=== PATIENT | female | born 1960 | race Caucasian/White ===

== ENCOUNTER 2024-07-12 14:56 | Emergency (ER) | payer MEDICAID, SELFPAY ==
[2024-07-12 15:04] VITALS: BP 130/74; PULSE 94; RESP 20; TEMP 36.1; O2SAT 97; BMI 21.9
--- NOTE | 2024-07-12 15:19 | CRLHL7_ITS ---
For Patients: As a result of the 21st Century Cures Act, medical imaging exams and procedure reports are released immediately into your electronic medical record. You may view this report before your referring provider. If you have questions, please contact your health care provider. INDICATION: SWELLING TO THE LEFT SIDE OF THE FACE UP TO THE EAR AND LEFT JAW TECHNIQUE: CT of the neck with 58 ml Isovue 370 iodinated contrast agent. Coronal and sagittal reconstructions are included. COMPARISON: None FINDINGS: There is diffuse inflammation in the left floor of mouth including the left sublingual gland. Additionally, diffuse soft tissue swelling of the left face, left buccal, and left submandibular region. Thickening and enhancement of the left platysma muscle. There is also thickening of the left submental skin and subcutaneous fat. Findings are concerning for cellulitis. No abscess or drainable fluid collection. Periapical lucency along the left mandibular 1st molar roots, without erosion of the overlying alveolar cortex. No lymphadenopathy. The oral cavity, nasopharyngeal, oropharyngeal and hypopharyngeal mucosal spaces are normal. No periapical dental disease. The supraglottic, glottic and infraglottic larynx are normal. The airway including the trachea is normal and is patent. Incidental hyperostosis mandibularis internus. The parotid glands, submandibular and sublingual glands are normal in appearance. The thyroid gland is normal in appearance. The vascular structures opacify normally with contrast material. No suspicious lytic or blastic osseous lesions. Visualized paranasal sinuses and mastoid air cells are clear. Visualized orbital and intracranial contents are normal. Supraclavicular regions, mediastinum and soft tissues of the imaged chest wall are normal. Centrilobular emphysema. A spiculated 1.5 cm opacity at the right lung apex could represent scarring but correlation with prior CT studies is recommended to ensure stability. IMPRESSION: 1. There is diffuse inflammation in the left floor of mouth including the left sublingual gland. Additionally, diffuse soft tissue swelling of the left face, left buccal, and left submandibular region. Thickening and enhancement of the left platysma muscle. There is also thickening of the left submental skin and subcutaneous fat. Findings are concerning for infectious process/cellulitis. No abscess or drainable fluid collection. 2. Periapical lucency along the left mandibular 1st molar roots, without erosion of the overlying alveolar cortex. 3. No cervical lymphadenopathy. 4. Centrilobular emphysematous changes. A spiculated 1.5 cm opacity at the right lung apex could represent scarring but correlation with prior CT studies is recommended to ensure stability. Please note that all CT scans at this facility use dose modulation, iterative reconstruction, and/or weight-based dosing when appropriate to reduce radiation dose to as low as reasonably achievable. Dictated by Clyde Jane MD @ 07/12/2024 4:38:57 PM (Electronically Signed)
[2024-07-12 15:43] LABS: Creatinine, Point-of-Care* 0.6 mg/dl (0.6-1.3)
--- NOTE | 2024-07-12 15:46 | ED_ITS ---
HPI - General Adult General Chief complaint: Ear/Nose/Throat Problem Stated complaint: Sinus infection Time Seen by Provider: 07/12/24 15:01 Source: patient Mode of arrival: ambulatory Limitations: no limitations History of Present Illness HPI narrative: Patient is 63-year-old female presenting to emergency department for left-sided jaw and facial swelling. She 1st noticed the swelling this past Saturday and she has noticed has gotten somewhat worse now. She has pain from her left jaw all way up to her left ear with some minor left maxillary sinus tenderness. Denies having symptoms like this before. She states he has some mild pain with opening her jaw but has been eating and drinking without issues. Has not noticed any shortness of breath. Is not having any throat pain. Denies fevers, chills, weakness, numbness, chest pain. Does have some mild ear pain. States seems to be pain all around a year but worse just anterior to the ear. Related Data Home Medications ?Medication ?Instructions ?Recorded ?Confirmed albuterol 90 mcg/actuation aerosol 2 spray inhalation PRN 04/18/22 04/18/22 inhaler aspirin 81 mg tablet,delayed 81 mg PO DAILY 04/18/22 04/18/22 release citalopram 40 mg tablet 40 mg PO DAILY 04/18/22 04/18/22 gabapentin 300 mg capsule 300 mg PO QDAY 04/18/22 04/18/22 ipratropium 0.5 mg-albuterol 3 mg 3 ml inhalation Q6-8H PRN 04/18/22 04/18/22 (2.5 mg base)/3 mL nebulization soln levothyroxine 112 mcg tablet 112 mcg PO DAILY 04/18/22 07/12/24 metformin 500 mg tablet 500 mg PO QDAY 04/18/22 07/12/24 montelukast 5 mg chewable tablet 10 mg PO QDAY 04/18/22 04/18/22 omeprazole 40 mg capsule,delayed 40 mg PO QDAY 04/18/22 04/18/22 release pravastatin 40 mg tablet 40 mg PO .Bedtime 04/18/22 07/12/24 pregabalin 150 mg capsule 150 mg PO TID 04/18/22 04/18/22 tizanidine 4 mg capsule 4 mg PO BID PRN 04/18/22 04/18/22 Previous Rx's ?Medication ?Instructions ?Recorded clindamycin HCl 150 mg capsule 450 mg (3 x 150 mg) PO TID 10 days 07/12/24 #90 caps Allergies Allergy/AdvReac Type Severity Reaction Status Date / Time Cephalosporins Allergy Mild Verified 07/12/24 16:10 Quinolones Allergy Mild Verified 07/12/24 16:10 sulfamethoxazole Allergy Mild Verified 07/12/24 16:10 trimethoprim Allergy Mild Verified 07/12/24 16:10 Clavulanate Allergy Mild Uncoded 07/12/24 16:10 Sulfa drugs Allergy Mild Uncoded 07/12/24 16:10 Review of Systems Status of ROS: Reports: 10 or more systems reviewed and unremarkable except as noted in History and below [facility] Social History Smoking Status: Current every day smoker What tobacco products do you use: cigarettes How often do you have a drink containing alcohol: never AUDIT-C Alcohol total score: 0 Non-prescribed substance use: denies use Exam Narrative: Exam Narrative: Const: Well-nourished, Well-developed, in mild distress Eyes: PERRL, no conjunctival injection, and symmetrical lids HENT: Atraumatic external nose and ears. Moist mucous membranes. Swelling noted starting to left jaw and left cheek. No tenderness with pulling of the left ear. There is some tenderness to palpation all around the ear but worse anterior to the ear. Normal tympanic membranes bilaterally. Neck: Symmetric, trachea midline, No thyromegaly. CVS: RRR, No murmurs or gallops. Peripheral pulses 2+ and equal in all extremities RESP: Unlabored respiratory effort. Clear to auscultation bilaterally. GI: Nontender/Nondistended, No rebound or guarding. MSK:Extremities w/o deformity, Normal Active ROM Skin: Warm, Dry. No rashes or lesions. Neuro: Normal Muscle tone, No focal neurological deficits. Psych: Awake, Alert, & Oriented x3. Appropriate mood and affect. Const: Vital Signs, click to edit/add: Vital Signs - 24 hr 07/12/24 15:04 Temperature 97 F L Pulse Rate [Right] 94 Respiratory Rate 20 Blood Pressure [Ri ght Upper Arm] 130/74 Pulse Oximetry 97 Oxygen Delivery Me thod Room Air Course Vital Signs Vital signs: Initial Vital Signs Temperature 97 F L 07/12/24 15:04 Temperature Source Temporal Artery Scan 07/12/24 15:04 Pulse Rate 94 07/12/24 15:04 Pulse Rhythm Regular 07/12/24 15:04 Respiratory Rate 20 07/12/24 15:04 Blood Pressure 130/74 07/12/24 15:04 Blood Pressure Mean 92 07/12/24 15:04 Pulse Oximetry 97 07/12/24 15:04 Oxygen Delivery Method Room Air 07/12/24 15:04 Vital Signs Temperature 97 F L 07/12/24 15:04 Pulse Rate 94 07/12/24 15:04 Respiratory Rate 20 07/12/24 15:04 Blood Pressure 130/74 07/12/24 15:04 Pulse Oximetry 97 07/12/24 15:04 Oxygen Delivery Method Room Air 07/12/24 15:04 Temperature 97 F L 07/12/24 15:04 Pulse Rate 94 07/12/24 15:04 Respiratory Rate 20 07/12/24 15:04 Blood Pressure 130/74 07/12/24 15:04 Pulse Oximetry 97 07/12/24 15:04 Oxygen Delivery Method Room Air 07/12/24 15:04 Medical Decision Making [facility] Narrative Medical decision making narrative: Patient is 63-year-old female presenting for some facial swelling. Differential at this time include peritonsillar abscess, Matty angina, retropharyngeal abscess,Lemierre disease or any other concerning oral pharynx or deep neck space abscesses. This could also be a clogged submandibular duct or parotid gland. Will do a CT scan to better evaluate. Will also do CBC and BMP. Lab work returned showing slightly elevated white, 12.87 but otherwise no obvious concerning abnormalities. This is neutrophil predominant. BMP shows a sodium of 130 but this is not related to her symptoms is not something needs to be acutely addressed. CT scan returned showing quite a bit of swelling noted to the left side of her face. There is some inflammation to the floor of left side of her mouth and within the left sublingual gland along with swelling throughout left face nuchal and submandibular region and the platysma muscle no obvious abscess seen. There is also a periapical lucency along the left mandibular 1st molar root. At this time though she is stable and showing no signs of airway compromise and I am comfortable discharging her home on clindamycin. I gave her very strict return precautions on when to return due to all these symptoms could get worse. Lab Data Labs: Lab Results 07/12/24 07/12/24 Range/Units 15:19 15:35 WBC 12.87 H (4.50-11.00) K/uL RBC 4.71 (4.00-5.20) m/uL Hgb 13.5 (12.0-16.0) gm/dL Hct 40.9 (33.0-51.0) % MCV 87 (80-100) fL MCH 29 (26-34) pg MCHC 33 (32-36) gm/dL RDW Coeff of Silas 12.9 (11.5-15.5) % Plt Count 304 (140-440) K/uL Neut % (Auto) 83.3 H (42.0-72.0) % Lymph % (Auto) 7.8 L (20-44) % [place] % (Auto) 7.4 (0.0-11.0) % Eos % (Auto) 0.8 (0.0-7.0) % Baso % (Auto) 0.5 (0.0-3.0) % Neut # (Auto) 10.70 H (1.7-7.0) K/uL Lymph # (Auto) 1.00 (0.90-2.90) K/uL [place] # (Auto) 1.00 H (0.00-0.90) K/UL Eos # (Auto) 0.10 (0.00-0.50) K/uL Baso # (Auto) 0.10 (0.00-0.30) K/uL Abs Immat Gran (auto) 0.00 (0.00-0.30) K/uL Imm/Tot Granulo (auto) 0.2 % Sodium 130 L (135-149) mmol/L Potassium 3.7 (3.6-5.1) mmol/L Chloride 96 (96-114) mmol/L Carbon Dioxide 25 (20-32) mmol/L Anion Gap 9 (7-15) mEq/L BUN < 2 L (7-30) mg/dL Creatinine 0.5 (0.5-1.5) mg/dL Estimated Creat Clear 46.73 Estimated GFR 107 ml/min Glucose 161 H (60-115) mg/dL Calcium 9.7 (8.4-10.6) mg/dL POC Creatinine 0.6 (0.6-1.3) mg/dl Imaging Data Soft tissue neck CT: Attestation: I have reviewed the pertinent imaging results. Radiologist's impression: 1. There is diffuse inflammation in the left floor of mouth including the left sublingual gland. Additionally, diffuse soft tissue swelling of the left face, left buccal, and left submandibular region. Thickening and enhancement of the left platysma muscle. There is also thickening of the left submental skin and subcutaneous fat. Findings are concerning for infectious process/cellulitis. No abscess or drainable fluid collection. 2. Periapical lucency along the left mandibular 1st molar roots, without erosion of the overlying alveolar cortex. 3. No cervical lymphadenopathy. 4. Centrilobular emphysematous changes. A spiculated 1.5 cm opacity at the right lung apex could represent scarring but correlation with prior CT studies is recommended to ensure stability. Please note that all CT scans at this facility use dose modulation, iterative reconstruction, and/or weight-based dosing when appropriate to reduce radiation dose to as low as reasonably achievable. Dictated by Clyde Jane MD @ 07/12/2024 4:38:57 PM Discharge Plan Discharge Clinical Impression: Left facial swelling Patient Disposition: Home, Self-Care Condition: Stable Additional Instructions: Take the clindamycin as directed. It is very important that if you start developing worsening pain with open your jaw, difficulty breathing or any other concerning symptoms that you return to the emergency department immediately for re-evaluation as this could be a sign that infection is getting worse. This is an infection that can cause blockage of your airway if it does worsen. There is also an opacity at the apex of the right long that could just be scarring but you should follow-up with primary care provider for follow-up. Also follow up with primary care provider about this swelling to make sure it is improving. Prescriptions: New clindamycin HCl 150 mg capsule 450 mg PO TID 10 Days Qty: 90 0RF No Action pregabalin 150 mg capsule 150 mg PO TID levothyroxine 112 mcg tablet 112 mcg PO DAILY albuterol 90 mcg/actuation aerosol 2 spray inhalation PRN pravastatin 40 mg tablet 40 mg PO .Bedtime aspirin 81 mg tablet,delayed release (DR/EC) 81 mg PO DAILY citalopram 40 mg tablet 40 mg PO DAILY tizanidine 4 mg capsule 4 mg PO BID PRN montelukast 5 mg tablet,chewable 10 mg PO QDAY ipratropium-albuterol 0.5 mg-3 mg(2.5 mg base)/3 mL solution for nebulization 3 ml inhalation Q6-8H PRN omeprazole 40 mg capsule,delayed release(DR/EC) 40 mg PO QDAY metformin 500 mg tablet 500 mg PO QDAY gabapentin 300 mg capsule 300 mg PO QDAY Follow Up/Referrals: Mere Rivera, DALIA, VISUAL SPECIALIST [Primary Care Provider] - Stand Alone Forms: [facility] Info Instructions
[2024-07-12 15:57] LABS: Basophils Percent Auto 0.5 % (0.0-3.0); Eosinophils Percent Auto 0.8 % (0.0-7.0); Hematocrit 40.9 % (33.0-51.0); Hemoglobin* 13.5 gm/dL (12.0-16.0); Immature Granulocytes Pct Auto 0.2 %; Lymphocytes Percent Auto 7.8 % (20-44); Mean Corpuscular HGB Conc 33 gm/dL (32-36); Mean Corpuscular Hemoglobin 29 pg (26-34); Mean Corpuscular Volume 87 fL (80-100); Monocytes Percent Auto 7.4 % (0.0-11.0); Neutrophils Percent Auto 83.3 % (42.0-72.0); Platelet Count* 304 K/uL (140-440); RDW Coefficient of Variation % 12.9 % (11.5-15.5); Red Blood Count 4.71 m/uL (4.00-5.20); White Blood Count* 12.87 K/uL (4.50-11.00)
[2024-07-12 16:01] LABS: Slide Review Reflex No
[2024-07-12 16:06] LABS: Chloride* 96 mmol/L (96-114); Potassium* 3.7 mmol/L (3.6-5.1); Sodium* 130 mmol/L (135-149)
[2024-07-12 16:09] LABS: Anion Gap 9 mEq/L (7-15); Carbon Dioxide* 25 mmol/L (20-32); Creatinine* 0.5 mg/dL (0.5-1.5); Est. Creatinine Clearance* 46.73; Estimated Glomerular Filt Rate 107 ml/min
[2024-07-12 16:10] LABS: Calcium* 9.7 mg/dL (8.4-10.6); Glucose* 161 mg/dL (60-115)
[2024-07-12 16:11] LABS: Blood Urea Nitrogen* < 2 mg/dL (7-30)
[2024-07-12 17:12] VITALS: BP 147/83; PULSE 90; RESP 20; O2SAT 97
== END 2024-07-12 17:13 | disposition home or self-care (01) ==
PROVIDERS: Emergency Provider Student in an Organized Health Care Education/Training Program; PCP Nurse Practitioner Family
DX: R22.0 Localized swelling, mass and lump, head (principal)
CPT/HCPCS: 36415; 70491; 80048; 82565; 85025; 99283; 99284; 99285; Q9967

== ENCOUNTER 2025-07-05 16:37 | Emergency (ER) | payer OTHER, SELFPAY ==
--- OUTSIDE RECORDS SUMMARY | 2016-06-07 04:00 | XMS_ITS | Continuity of Care Document ---
Author Organization [facility] Address [address] [place] [address] Phone Care Team Providers Care Privacy Officer Name Role Phone Anway Nabor GÓMEZ CNP Unavailable Unavailable Allergies, Adverse Reactions, Alerts Substance Reaction Status Criticality CIPROFLOXACIN HCL Rash Active No Informa tion ciprofloxacin Rash Active No Information amoxicillin HivesHives Active No Information cefuroxime HivesHives Active No Information sulfamethoxazole HivesHives Active No Informat ion Medications Medication Instructions Dosage Effective Dates (start - stop) Status Comments Tirosint 112 mcg capsule take 1 capsule by oral route every day 112 MCG - Active citalopram 40 mg tablet take 1 tablet by oral route every day 40 MG - Active cyclobenzaprine 10 mg tablet take 1 tablet by oral route 3 times every day 10 MG - Active montelukast 10 mg tablet take 1 tablet by oral route every day in the evening 10 MG - Active ProAir RespiClick 90 mcg/actuation breath activated inhale 2 puff by inhalation route every 4 - 6 hours as needed 180 MCG - Active lidocaine 5 % adhesive patch apply 1 patch by transdermal route every day (May wear up to 12hours.) 1 patch - Active Aspir-81 81 mg tablet,delayed release take 1 tablet by oral route every day - Active ipratropium bromide 0.06 % nasal spray spray 2 spray by intranasal route 3 times every day in each nostril 2.00 spray - Active hydroxyzine HCl 25 mg tablet take 1 - 2 Tablet by oral route twice daily as needed - Active omeprazole 40 mg capsule,delayed release take 1 capsule by oral route every day before a meal 40 MG - Active ergocalciferol (vitamin D2) 50,000 unit capsule take 1 capsule by oral route every saturday and , twice a week - Active Lyrica 50 mg capsule take 1 capsule by oral route 4 times every day 50 MG - Active pravastatin 40 mg tablet take 1 tablet by oral route every day 40 MG - Active tramadol 50 mg tablet take 1 Tablet by oral route 2 times every day as needed 50 MG - Active Percocet 5 mg-325 mg tablet take 1 tablet by oral route every 12 hours as needed 1 tablet - No Longer Active oxycodone-acetaminoph en 5 mg-325 mg tablet take 1 Tablet by ORAL route every 12 hours as needed - No Longer Active Procedures Procedure Date New Pt Eval 30 Min Toxicology Point of Care Test 6 Results Test Name Date and Time Measure Units Reference Range Abnormal Flag Status Comments Panel Description: Point Of Care Testing (with T ) Final POCT Amphetamine neg Final POCT-Barbituate neg Final POCT-Benzodiazepi ne neg Final POCT-Cocaine neg Final POCT-Methadone neg Final POCT-Opiates neg Final POCT-Oxycodone pos Final POCT-Marijuana neg Final POCT-Creatinine norm Final POCT-Specific [place] norm Final Recollection? 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 [address], [place], [place], [id number], [place]. tel:[phone] Referring Provider: Jocelyn Bro DO S, [address] [place], [address]. tel:[phone] Family History Family Member Type Diagnosis Age At Onset Father Problem (finding) diabetes melli tus in first degree relative Mother Problem (finding) hypertension Father Problem (finding) Heart Disease Mother Problem (finding) Heart Disease Payers Payer name Insurance type Covered green party ID Angeline partida(s) [facility] [id number] Social History Type Description Quantity Date Captured Comments Alcohol Use Details No Caffeine Use Details Unknown Tobacco Use Status Occasional cigarette smoker Smoking Status Current every day smoker Smoking Tobacco Use Details Cigarette: No Details Available Cigarette: No Details Available Sex Female Vital Signs Date / Time: Height Weight BMI Pulse Rate Blood Pressure Temperature Respiratory Rate Body Surface Area Head Circumference Head Circ. Percentile Wt./Yoel. Percentile BMI percentile Pulse Ox Inhaled Ox 9:42 AM 71 /min 125/75 mm[Hg] 16 /min 95 % Chief Complaint And Reason For Visit No Information Reason For Referral Reason For Referral No Information History Of Present Illness Encounter Date Complaint History Of Prese nt Illness No Information Functional Status Date Functional Assessmen t No Information Instructions Date Instruction Additional Infor mation No Information Assessments Type Assessment Date No Information Patient Care Teams Name Effective Dates (start - stop) Status Members No Information
[2025-07-05 16:47] VITALS: BP 174/87; PULSE 92; RESP 24; TEMP 36.7; O2SAT 96; BMI 20.1
--- NOTE | 2025-07-05 16:59 | ED_ITS ---
HPI - General Adult General Time Seen by Provider: 16:59 Date Seen: 07/05/25 Chief complaint: Cough Stated complaint: sinus infection Time Seen by Provider: 07/05/25 16:52 Source: patient and RN notes reviewed Mode of arrival: ambulatory Limitations: no limitations History of Present Illness HPI narrative: This 64-year-old female is coming in upon referral from clinic. She went in for an appointment. She started with some sinus congestion about 5 days ago, went into her chest and she is feeling short of breath with exertion, coughing. No fevers or chills. She does wonder if maybe she has a sinus infection. She did talk to the provider in clinic whom is not her normal provider that when she is ambulating, is getting short of breath but is also getting chest pressure pain in feels a go up into her neck. She states her brother recently had a heart attack and had similar symptoms. She is a smoker, has an albuterol inhaler but ran out of it. She does not think that she is had pulmonary function testing or breathing testing for about 10 years. She has multiple drug allergies including cephalosporins, quinolones, Bactrim/sulfa. It sounds as if she may be intolerant to Augmentin because of the clavulanate. She thinks she might have a diagnosis of some smoker related lung issues, maybe COPD or emphysema, she is not completely sure. She also notes that she has been having problems with her thyroid, she thought maybe she was having some chest discomfort from that as she maybe had some before. She also notes that she had a UTI and seemed like she was just having. Blood. She notes that she is having vaginal bleeding that happened last week, she has not had a menstrual cycle for 10 years. She is here for her respiratory complaints. Did discuss with patient that vaginal bleeding in the postmenopausal air is abnormal and warrants workup. She is here for her chest symptoms but she will need follow-up for sure regardless given the history I am getting from her. Related Data Home Medications ?Medication ?Instructions ?Recorded ?Confirmed albuterol 90 mcg/actuation aerosol 2 spray inhalation PRN 04/18/22 04/18/22 inhaler aspirin 81 mg tablet,delayed 81 mg PO DAILY 04/18/22 0 07/05/25 release citalopram 40 mg tablet 40 mg PO DAILY 04/18/2206/08 gabapentin 300 mg capsule 300 mg PO QDAY 04/18/2206/08 ipratropium 0.5 mg-albuterol 3 mg 3 ml inhalation Q6-8 H PRN 04/18/22 07/05/25 (2.5 mg base)/3 mL nebulization soln levothyroxine 112 mcg tablet 112 mcg PO DAILY 04/18/22 07/05/25 metformin 500 mg tablet 500 mg PO QDAY 04/18/2206/08 montelukast 5 mg chewable tablet 10 mg PO QDAY 2 04/18/22 omeprazole 40 mg capsule,delayed 40 mg PO QDAY 2 07/05/25 release pravastatin 40 mg tablet 40 mg PO .Bedtime 04/18/22 0 07/05/25 pregabalin 150 mg capsule 150 mg PO TID 04/18/2207/05 tizanidine 4 mg capsule 4 mg PO BID PRN 04/18/22 fenofibrate nanocrystallized 145 145 mg PO DAILY 07/0507/05/25 mg tablet Previous Rx's ?Medication ?Instructions ?Recorded clindamycin HCl 150 mg capsule 450 mg (3 x 150 mg) PO TID 10 days 07/12/24 #90 caps ipratropium 0.5 mg-albuterol 3 mg 3 ml inhalation QID PRN #90 mL 07/05/25 (2.5 mg base)/3 mL nebulization soln nebulizer and compressor #1 ea 07/05/25 Allergies Allergy/AdvReac Type Severity Reaction Status Date / Time Cephalosporins Allergy Mild Verified 07/05/25 16:45 Quinolones Allergy Mild Verified 07/05/25 16:45 sulfamethoxazole Allergy Mild Verified 07/05/25 16:45 trimethoprim Allergy Mild Verified 07/05/25 16:45 Clavulanate Allergy Mild Uncoded 07/12/24 16:10 Sulfa drugs Allergy Mild Uncoded 07/12/24 16:10 Review of Systems Status of ROS: Reports: 6 or more systems reviewed and unremarkable except as noted in History and below [facility] Social History Smoking Status: Current every day smoker What tobacco products do you use: cigarettes Smoking packs per day: 0.5 Smoking cigarettes per day: 10.0 How often do you have a drink containing alcohol: never AUDIT-C Alcohol total score: 0 Non-prescribed substance use: denies use Exam Const: Vital Signs, click to edit/add: Vital Signs - 24 hr 07/05/25 16:47 07/05/25 17:33 07/05/25 19:09 Temperature 98.0 F Pulse Rate [Pulse Oximeter] 92 82 Respiratory Rate 24 20 Blood Pressure [Ri ght Upper Arm] 174/87 H 138/73 Pulse Oximetry 96 99 95 Oxygen Delivery Me thod Room Air Room Air This 64-year-old female is lying in the bed, alert, interactive, no parents stress. She has a little bit more coarse voice, would not say she is hoarse. Able to speak in complete sentences, no tachypnea, no stridor. Sclera clear, conjugate gaze, symmetrical facial function. Neck is supple, no jugular venous distension noted, no adenopathy noted. Lungs with very distant breath sounds, really cannot hear any air flow at all. There is no wheezing or crackles heard baseline. CV regular rate and rhythm, do not hear any significant murmur, normal S1-S2. Abdomen is soft, nontender, nondistended, no organomegaly. She has no lower extremity edema. Documenting provider has reviewed patient's vital signs: yes Course Course ED Course: Will have patient on cardiac monitoring and pulse oximetry, need to obtain an EKG. Need to consider thromboembolic disease, infectious lung etiologies, COPD/emphysema, concomitant cardiac strain or cardiac ischemia itself. Her symptoms are coming with exertion, could be an anginal equivalent or from what I here on her lung exam, she could be having some COPD that is on masking some underlying ischemic disease. There are also other concerns with this patient, potentially postmenopausal bleeding but that is not the emergent issue in the ER. Do need to keep this in consideration. Will obviously think of potential thromboembolic disease. She is comfortable and stable at this time. I would like to see how she does with a DuoNeb but will ask staff to ambulate her with pulse oximetry 1st to see what happens with her pulse and oxygenation. After she is done with that, will see how she responds to a DuoNeb. Will start with a portable chest x-ray but may need further advanced imaging. Reevaluation(s) Time of Reevaluation #1: 18:20 Reevaluation #1: Patient does feel the neb helped some. Her lungs have some improved aeration, can actually hear some mild air exchange, no wheezing or crackles, lung sounds are as significantly distant and there is a significantly prolonged phase on expiration. Reviewed with her that her D-dimer is elevated, we will be doing chest CT PE protocol. With ambulation, her oximetry went to 93%, she was not tachycardic. We are proceeding with chest CT PE protocol to rule out pulmonary emboli. I will have patient receive another DuoNeb as well seeing that hit did help. Time of Reevaluation #2: 20:04 Reevaluation #2: Have reviewed patient's chest CT with her. Unfortunately there is a right apical spiculated lesion in with her sodium being low at 128, do have concerns that this could definitely represent a malignancy. I would not recommend the interval 3 month follow-up that was 1 of the options in the CT. I do think she needs follow-up with her primary care provider and have this lesion further characterized. She feels much better after the 2nd neb, she actually is coughing, has productive sounding cough. She feels much better. With the mucous plugging seen on her chest CT, will give her course of antibiotics. Will also give her prednisone. She really needs to see a lung specialist and have updated pulmonary function testing to see how severe her COPD/emphysema is. We did review that we have been able to rule out an acute heart attack tonight. We did discuss that this workup does not mean that she could not have concomitant underlying heart disease. Hopefully with treating her COPD, this will help her system oxygen ate better and put less stress on her heart. She does understand that she may need more evaluation for the possibility of underlying heart disease but with her current lung symptoms, she really cannot undergo cardiac stress testing. We need to maximize her lung function and diminish the COPD exacerbation, cardiac stress testing could be considered later. She understands that if her breathing or her chest symptoms are worsening at all, she is to return to the ED. Vital Signs Vital signs: Initial Vital Signs Temperature 98.0 F 07/05/25 16:47 Temperature Source Temporal Artery Scan 07/05/25 16:47 Pulse Rate 92 07/05/25 16:47 Respiratory Rate 24 07/05/25 16:47 Blood Pressure 174/87 H 07/05/25 16:47 Blood Pressure Mean 116 H 07/05/25 16:47 Pulse Oximetry 96 07/05/25 16:47 Oxygen Delivery Method Room Air 07/05/25 16:47 Vital Signs Temperature 98.0 F 07/05/25 16:47 Pulse Rate 92 07/05/25 16:47 Respiratory Rate 24 07/05/25 16:47 Blood Pressure 174/87 H 07/05/25 16:47 Pulse Oximetry 96 07/05/25 16:47 Oxygen Delivery Method Room Air 07/05/25 16:47 Temperature 98.0 F 07/05/25 16:47 Pulse Rate 82 07/05/25 19:09 Respiratory Rate 20 07/05/25 19:09 Blood Pressure 138/73 07/05/25 19:09 Pulse Oximetry 95 07/05/25 19:09 Oxygen Delivery Method Room Air 07/05/25 19:09 Medications Administered Medications: Discontinued Medications Generic Name Dose Route Start Last Admin Trade Name Ayana PRN Reason Stop Dose Admin Albuterol/Ipratropium 1 [facility] 07/05/25 17:08 07/05/25 17:22 Iprat-Albut 0.5-2.5 Mg/3 Ml [facility] 07/05/25 17:09 1 neb ONCE ONE Administration Albuterol/Ipratropium 1 [facility] 07/05/25 18:29 07/05/25 18:45 Iprat-Albut 0.5-2.5 Mg/3 Ml [facility] 07/05/25 18:30 1 [facility] ONCE ONE Administration Medical Decision Making Lab Data Lab results reviewed: Yes I reviewed the patient's lab results Labs: Lab Results 07/05/25 Range/Units 17:27 WBC 8.60 (4.50-11.00) K/uL RBC 4.50 (4.00-5.20) m/uL Hgb 13.1 (12.0-16.0) gm/dL Hct 38.8 (33.0-51.0) % MCV 86 (80-100) fL MCH 29 (26-34) pg MCHC 34 (32-36) gm/dL RDW Coeff of Silas 12.8 (11.5-15.5) % Plt Count 335 (140-440) K/uL Neut % (Auto) 73.2 H (42.0-72.0) % Lymph % (Auto) 12.6 L (20-44) % [place] % (Auto) 9.8 (0.0-11.0) % Eos % (Auto) 3.5 (0.0-7.0) % Baso % (Auto) 0.8 (0.0-3.0) % Neut # (Auto) 6.30 (1.7-7.0) K/uL Lymph # (Auto) 1.10 (0.90-2.90) K/uL [place] # (Auto) 0.80 (0.00-0.90) K/UL Eos # (Auto) 0.30 (0.00-0.50) K/uL Baso # (Auto) 0.07 (0.00-0.30) K/uL Abs Immat Gran (auto) 0.01 (0.00-0.30) K/uL Imm/Tot Granulo (auto) 0.1 % INR 0.99 (0.91-1.10) APTT 29 (23-33) Seconds D-Dimer Quant (PE/DVT) 1.28 H (0.00-0.50) ug/ml VBG pH 7.390 (7.32-7.43) VBG pCO2 48 (40-50) mmHG VBG pO2 34.4 (25-47) mmHG VBG HCO3 29 H (21-28) mmol/L Sodium 128 L (135-149) mmol/L Potassium 3.6 (3.6-5.1) mmol/L Chloride 92 L (96-114) mmol/L Carbon Dioxide 29 (20-32) mmol/L Anion Gap 7 (7-15) mEq/L BUN 3 L (7-30) mg/dL Creatinine 0.5 (0.5-1.5) mg/dL Estimated Creat Clear 45.95 Estimated GFR 106 ml/min Glucose 135 H (60-115) mg/dL Lactate 0.9 (0.5-1.9) mmol/L Calcium 9.4 (8.4-10.6) mg/dL Total Bilirubin 0.4 (0.1-1.5) mg/dL AST 29 (12-35) U/L ALT 17 (4-35) U/L Alkaline Phosphatase 76 (40-150) U/L Troponin I < 0.01 (0.01-0.04) ng/mL C-Reactive Protein 2.5 H (0.5-1.0) mg/dL NT-Pro-B Natriuret Pep 80 (See Note) pg/mL Total Protein 7.0 (6.0-8.3) g/dL Albumin 4.4 (3.3-5.0) g/dL SARS-CoV-2 (PCR) Negative SARS-CoV-2 (Negative) Influenza Type A (PCR) Negative PCR FLU A (Negative) Influenza Type B (PCR) Negative PCR FLU B (Negative) RSV (PCR) Negative PCR RSV (Negative) Imaging Data Chest x-ray: Attestation: I have reviewed the pertinent imaging results. My impression: Did visualize her chest x-ray, appears to have hyperinflation but no noted pneumonia or consolidation, wait radiology over read. Radiologist's impression: Patient: ZARA FRANCIS Facility:?[facility] Patient ID:?[id number] Site Patient ID:?[id number]. Site :?[id number] Study:?XRay-Chest PORTABLE-07/05/2025 5:41:06 PM Ordering Physician:Jordan Marrero Final Report: INDICATION: Shortness of breath, cough. TECHNIQUE: Chest 1 views. COMPARISON: Chest CT 2019. FINDINGS: Lungs: Normal lung volume. No consolidation. The tracheobronchial tree and hilar structures are unremarkable. Pleura: No pleural effusion or pneumothorax. Heart and Mediastinum: Normal heart size. The great vessels of the thorax are unremarkable. Bones: No acute displaced osseous process. IMPRESSION: No consolidation. Dictated by Clyde Lundberg MD @ 07/05/2025 6:12:50 PM (Electronic Signature) CT scan - chest: Attestation: I have reviewed the pertinent imaging results. Radiologist's impression: Patient: ZARA FRANCIS Facility:?[facility] Patient ID:?[id number] Site Patient ID:?[id number]. Site :?[id number] Study:?CT-Chest Angio W/95CC [id number]/29/2025 6:45:11 PM Ordering Physician:Jordan Marrero Final Report: INDICATION: Dyspnea on exertion. Elevated D-dimer. COMPARISON: 02/05/2019 CT of the chest TECHNIQUE: CT pulmonary angiogram of the chest with intravenous contrast (95 milliliters Isovue 370). Reconstructed images/MIPS were created. FINDINGS: Airways: The trachea and central airways are clear. There is mild diffuse bronchial wall thickening. There is multifocal distal airway mucous plugging. Lungs: Emphysematous change in the lungs. Spiculated solid right upper lobe apical pulmonary nodule measuring 13 x 10 millimeters which is new since 02/05/2019 (). There are several sub 5 millimeter solid pulmonary nodules which are unchanged since 02/05/2019 such as a solid micronodule in the left upper lobe on series 6, image 46. There is a punctate calcified granuloma in the left lower lobe. Pleura: No effusion. Lymph nodes: No bulky thoracic lymphadenopathy. Heart: Normal size. There is coronary artery calcification. Aorta: Moderate calcification. Pulmonary artery: Normal caliber of the main pulmonary artery. No pulmonary embolism is detected. Chest wall: Normal. Bones: Diffuse osseous demineralization. Similar chronic mild multilevel anterior vertebral body wedging most conspicuous in the inferior thoracic spine. There are osseous degenerative changes. IMPRESSION: 1. No pulmonary embolism is detected. 2. Emphysematous lungs with multifocal distal airway mucous plugging. 3. Spiculated solid right upper lobe apical pulmonary nodule measuring 13 x 10 millimeters which is new since 02/05/2019. For a incidental nodule of this size, initial management considerations include PET-CT, biopsy, or follow-up low-dose noncontrast CT in 3 months. Please note that all CT scans at this facility use dose modulation, iterative reconstruction, and/or weight-based dosing when appropriate to reduce radiation dose to as low as reasonably achievable. Dictated by Andrey Francis MD @ 07/05/2025 7:41:48 PM (Electronic Signature) ECG Data Attestation: I personally reviewed and interpreted this ECG as follows: (Normal sinus rhythm, 77 beats per minute. Some artifact noted. Q-waves V1 V2 but significant artifact. Possible mild ST segment depression with some flipped T- waves but again artifact noted.) Prior ECG tracings: not available for review Discharge Plan Discharge Clinical Impression: Acute exacerbation of chronic obstructive pulmonary disease, Mass of right lung, Hyponatremia Patient Disposition: Home, Self-Care Condition: Stable Instructions: Hyponatremia (ED), COPD (Chronic Obstructive Pulmonary Disease) (ED) Additional Instructions: You need to follow up in clinic this week, they will need to get you a referral to pulmonology and possibly order further testing for your lungs. I highly recommend that this lung lesion gets worked up now, your sodium was mildly low at 128. This should be rechecked in clinic to make sure it is not worsening. Start the prednisone 20 mg twice a day for 5 days, doxycycline 100 mg twice a day for 7 days. I have sent in a prescription for nebulizer and DuoNebs to be used up to 4 times a day. I have given you a refill of your albuterol inhaler out of [employer], this can be used 2 puffs every 4 hours as needed and can be used in between the DuoNebs. You may need further cardiac stress testing but this should not be done when your pulmonary/lung status is decompensated like it is now. If you have worsening symptoms, develops further concerns, chest pain reoccurs, please return to the ER for further evaluation. Activity Level: Activity as Tolerated Prescriptions: New ipratropium-albuterol 0.5 mg-3 mg(2.5 mg base)/3 mL solution for nebulization 3 ml inhalation QID PRNQty: 90 0RF (DME) nebulizer and compressor Device See Rx Instructions .Route Qty: 1 0RF Rx Instructions: As directed No Action pregabalin 150 mg capsule 150 mg PO TID levothyroxine 112 mcg tablet 112 mcg PO DAILY albuterol 90 mcg/actuation aerosol 2 spray inhalation PRN pravastatin 40 mg tablet 40 mg PO .Bedtime aspirin 81 mg tablet,delayed release (DR/EC) 81 mg PO DAILY citalopram 40 mg tablet 40 mg PO DAILY tizanidine 4 mg capsule 4 mg PO BID PRN montelukast 5 mg tablet,chewable 10 mg PO QDAY ipratropium-albuterol 0.5 mg-3 mg(2.5 mg base)/3 mL solution for nebulization 3 ml inhalation Q6-8H PRN omeprazole 40 mg capsule,delayed release(DR/EC) 40 mg PO QDAY metformin 500 mg tablet 500 mg PO QDAY gabapentin 300 mg capsule 300 mg PO QDAY fenofibrate nanocrystallized 145 mg tablet 145 mg PO DAILY clindamycin HCl 150 mg capsule 450 mg PO TID 10 Days Qty: 90 0RF Follow Up/Referrals: Mere Rivera, DALIA, TRANSMISSION REPAIRER [Primary Care Provider, Family Practice] [facility] Info Instructions Procedures ABG Interpretation ABG Results: 07/05/25 17:27 VBG pH 7.390 VBG pCO2 48 VBG pO2 34.4 VBG HCO3 29 H
--- NOTE | 2025-07-05 17:08 | CRLHL7_ITS ---
For Patients: As a result of the Century Cures Act, medical imaging exams and procedure reports are released immediately into your electronic medical record. You may view this report before your referring provider. If you have questions, please contact your health care provider. INDICATION: Shortness of breath, cough. TECHNIQUE: Chest 1 views. COMPARISON: Chest CT 2018. FINDINGS: Lungs: Normal lung volume. No consolidation. The tracheobronchial tree and hilar structures are unremarkable. Pleura: No pleural effusion or pneumothorax. Heart and Mediastinum: Normal heart size. The great vessels of the thorax are unremarkable. Bones: No acute displaced osseous process. IMPRESSION: No consolidation. Dictated by Clyde Lundberg MD @ 07/05/2025 6:12:50 PM (Electronically Signed)
--- OUTSIDE RECORDS SUMMARY | 2025-07-05 17:17 | XMS_ITS | Clinical Summary ---
Author Organization [employer] [facility] Address [address] [place] [address] Care Team Providers Care Environmental Consultant Name Role Phone Walter Rowe MD Unavailable [phone] Mere Rivera NP Primary Care Provider [phone] Allergies Active Allergy Reactions Criticality Noted Date Comments Amoxicillin-Pot Clavulanate Vomiting 04/01/20 06 Cefuroxime *Unknown - Follow up needed 11/18/2005 Ciprofloxacin Rash 11/27/2006 Quinolones Rash Low 02/05/2019 Sulfamethoxazole-Trimethoprim *Unknown - Follow up needed 11/18/2005 Trimethoprim *Unknown Low 02/05/2019 Medications aspirin enteric coated 81 mg tabletIndications:Di abetes mellitus type II Take 1 tablet by mouth once daily with a meal. 90 tablet 3 11/02/19 13 Active cetirizine (ZYRTEC) 10 mg tablet Take 1 tablet by mouth once daily. 0 07/24/20 19 Active lancets (Accu-Chek Softclix Lancets)Indications: Type 2 diabetes mellitus with microalbuminuria, without long-term current use of insulin (HC) TEST 1 TIME DAILY 100 Each 3 03/24/20 21 Active cholecalciferol, Vitamin D3, (Vitamin D-3) 5,000 unit tab tabletIndications:Vi tamin D deficiency Take 1 Tablet (5,000 units) by mouth once daily. 90 Tablet 1 12/15/19 22 Active blood-glucose meterIndications:Typ e 2 diabetes mellitus with microalbuminuria, without long-term current use of insulin (HC) As directed. Dispense meter, test strips, lancets covered by pt ins. E11.9 NIDDM type II - Test 1 time/day 1 Each 11/20/19 23 Active blood sugar diagnostic (Accu-Chek Guide test strips) stripIndications:Typ e 2 diabetes mellitus with microalbuminuria, without long-term current use of insulin (HC) TEST 1 TIME DAILY 100 Each 3 08/23/20 23 Active fluticasone (50 mcg per actuation) nasal solution (FLONASE)Indications :Environmental allergies,Dysfunctio n of right eustachian tube Inhale 1 [place] to both nostrils two times daily. 48 mL 11 02/07/20 24 Active montelukast (SINGULAIR) 10 mg tabletIndications:En vironmental allergies Take 1 Tablet (10 mg) by mouth at bedtime. 90 Tablet 3 02/07/20 24 Active fenofibrate nanocrystallized (TRICOR) 145 mg tabletIndications:Mi xed hyperlipidemia Take 1 Tablet (145 mg) by mouth once daily with a meal. 90 Tablet 3 09/01/20 24 Active gabapentin (NEURONTIN) 100 mg capsuleIndications:C hronic bilateral low back pain without sciatica Take 1 Capsule (100 mg) by mouth 3 times daily if needed (Low back pain). 100 Capsule 3 09/01/20 24 Active metFORMIN (GLUCOPHAGE XR) 500 mg Extended-Release tabletIndications:Ty pe 2 diabetes mellitus with microalbuminuria, without long-term current use of insulin (HC) Take 1 Tablet (500 mg) by mouth once daily with evening meal. 90 Tablet 3 09/01/20 24 Active omeprazole (PRILOSEC) 40 mg Delayed-Release capsuleIndications:G astric reflux Take 1 Capsule (40 mg) by mouth once daily before a meal. 90 Capsule 1 09/01/20 24 Active pravastatin (PRAVACHOL) 40 mg tabletIndications:Mi xed hyperlipidemia Take 1 Tablet (40 mg) by mouth at bedtime. 90 Tablet 3 09/01/20 24 Active citalopram (CELEXA) 20 mg tabletIndications:De pression, major, single episode, moderate (HC) Take 1 Tablet (20 mg) by mouth once daily in the morning. 90 Tablet 3 11/24/19 25 Active cyclobenzaprine (FLEXERIL) 10 mg tabletIndications:Mu scle spasm Take 1 Tablet (10 mg) by mouth 3 times daily if needed for Muscle Spasm. 90 Tablet 3 12/04/19 25 Active levothyroxine (SYNTHROID) 100 mcg tabletIndications:Ac quired hypothyroidism Take 1 Tablet (100 mcg) by mouth before breakfast. Dose increase 04/19/25 90 Tablet 04/19/20 25 Active meloxicam 15 mg tabletIndications:Ac brenna pain of left knee Take 1 Tablet (15 mg) by mouth once daily. 30 Tablet 06/01/20 25 Active albuterol HFA (Ventolin HFA) 90 mcg/actuation inhalerIndications:C OPD, mild (HC) INHALE 1 TO 2 PUFFS BY MOUTH EVERY 4 HOURS NEEDED FOR SHORTNESS OF BREATH OR FOR WHEEZE 54 Each 3 07/01/20 25 Active albuterol HFA (Ventolin HFA) 90 mcg/actuation inhalerIndications:C OPD, mild (HC) INHALE 1 TO 2 PUFFS BY MOUTH EVERY 4 HOURS NEEDED FOR SHORTNESS OF BREATH OR FOR WHEEZE 54 Each 3 12/25/19 25 025 Discontinu ed(Reorder (E-cancel not sent)) nitrofurantoin macrocrystals/monohy drate (MACROBID) 100 mg capsuleIndications:U TI (urinary tract infection), uncomplicated Take 1 Capsule (100 mg) by mouth two times daily for 5 days. 10 Capsule 06/08/20 25 025 clindamycin (CLEOCIN) 300 mg capsuleIndications:u rinary tract infection Take 2 Capsules (600 mg) by mouth three times daily for 7 days. 42 Capsule 06/11/20 25 025 Active Problems Problem Noted Date Diagnosed Date Hyperopia of both eyes with astigmatism and pres byopia 12/20/2021 Nuclear senile cataract of both eyes 12/20/2021 Moderate episode of recurrent major depressive d isorder 09/07/2020 Hip pain, right 04/27/2017 Overview (08/31/2017): Labral tear seen on MR Arthrogram January: right hip intraarticular joint injection under ultrasound guidance. Aug 2017: Saw Dr. Godinez, see note, recommended more physical therapy before considering any surgical options for hip pain, likely multifactorial. Pain management contract terminated 12/17/2016 Overview (12/17/2016): 2 consecutive months of patient self-escalation. Not functioning well with current regimen. Diagnosis: Chronic lumbar degenerative changes/spinal stenosis. Recommend follow up with Orthopedics, physical therapy. Pecocet 5/325 twice daily and Lyrica 100mg twice daily previously COPD, mild 09/05/2016 Overview (09/05/2016): Asymptomatic. No shortness of breath or daily cough. Albuterol and ipratropium. Type 2 diabetes mellitus wit h microalbuminuria, without long-term current use of insulin 06/25/2016 Chronic low back pain 01/10/2016 Overview (03/06/2017): 07/23/16: Bilateral Lumbar Spine lateral trigger point steroid injection. 08/06/16: 30% improvement on left and 0% on right February 2017: Saw. Rheumatology ( Dr. Arriola) changing ibuprofen to nabumetone, No underlying Rheumatologic etiology. February 2017: Saw Dr. Smith, [facility], recommended Fibromyalgia program at [facility] and Rheumatology consult. Lyrica increased. 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 ANXIETY 05/18/2005 DEPRESSIVE DISORDER, MAJOR RECUR, UNSPECIFIED TOBACCO USE 01/06/2003 HX, FAMILY, ISCHEMIC HEART DISEASE 02/09/2002 Resolved Problems Problem Noted Date Diagnosed Date Resolved Date Pain medication agreement 04/16/2016 Overview (06/30/2016): 04/16/16. Chronic lumbar degenerative changes/spinal stenosis. Recommend follow up with Orthopedics. Pecocet 5/325 twice daily as needed pain, #60/month [facility]. Lyrica 100mg twice daily. Adding glucosamine. Acupuncture as needed, can add OMT and pool physical therapy. Dr. Bro Patient established with [facility] - recommended epidural injection. D/c Tramadol Midline low back pain 12/05/20152015 Diabetes mellitus, type 2 11/02/2012 Controlled substance agreeme nt signed and scanned 04/20/11 10/21/2012 04/16/2016 Overview (04/13/2014): Percocet 60 tab a month, DR Umana, and [facility] clinic. 02/2013 reviewed 04/13/14 - increased tramadol to 200 mgXR daily and percocet only as needed flare up pain, 40 tablets a month. Celebrex daily. Adjusting medications. Chronic back pain 01/25/2012 01/10/2016 Pain medication agreement 04/18/2011 Overview (08/21/2012): oxycodone refill needs to be sent to pain clinic per LIVIER UMANA MD (see refill encounter dated 08/20/12) ... MARICARMEN DAVIS RN, 08/21/2012 10:54 PM Controlled substance agreement for percocet 30 tab a month on file and signed 04/18/11. Designated pharmacy: [facility], Prescribing physician: Mariusz Diagnosis: back pain Depressive disorder, not elsewhere classified 12/27/19 06 01/30/2013 BRONCHITIS - ACUTE 05/18/2005 3 SINUSITIS - ACUTE 04/11/2005 01/30/2013 MALAISE AND FATIGUE NEC 02/09/200201/06 Wheezing 10/28/2000 01/30/2013 Encounters Date Type Department Care Team Description 07/05/2025 4:00 PM CDT Office [place] [facility] [address] [place] [address] Shruthi Delaney MD Sinus Problem (Sinus pain and pressure, cough, shortness of breath x 5 days ) 07/05/2025 Travel 07/01/[address] [address] Mere Rivera, STATION MECHANIC HELPER Refill Request (Albuterol inhaler) 06/29/2025 [address]ill [address] [place] [address] Mere Rivera, STATION MECHANIC HELPER Refill Request (Meloxicam) 06/22/2025 11:05 AM CDT Ancillary Procedure [address] [address] 06/22/2025 11:00 AM CDT Ancillary Procedure [address] [address] 06/22/2025 10:30 AM CDT Office Visit [address] [address] Isauro King DO Knee Pain/problem (Left knee) 06/22/2025 Travel 06/10/2025 10:20 AM CDT Office Visit [facility] [address] [place] [address] James Harry MD Knee Pain/problem (Pain of left knee) 06/09/2025 Travel 06/08/2025 2:20 PM CDT Office [address] [place] [address] Shruthi Delaney MD Urinary Problem (Frequent urination, low back pain, abdominal pressure, blood in urine x 5 days ) 06/08/2025 Travel 06/01/2025 3:30 PM CDT Ancillary Procedure [address] [place] [address] [place] [address] 06/01/2025 3:00 PM CDT [place] [facility] [address] [place] [address] Mere Rivera NP Musculoskeletal Problem 06/01/2025 Travel 04/05/2025 2:00 PM CDT Orders Only [facility] [address] [place] [address] Lab, [facility] 04/05/2025 Travel from Last 3 Months Immunizations Immunization Administration Dates Next Due HepA-HepB (Twinrix) 04/11/2015,05/24/2014,2013 Hepatitis B, Unspecified 04/19/2014 Influenza, IIV3 (Age >=3 years) 07/27/2012,08/09 Influenza, IIV4 07/10/2017, 6,06/24/2015,2013 Influenza, IIV4 (=>6mos) MDV 07/24/2019,07/19/20 17 Pneumococcal Poly,23-Valent (Pneumovax) 11/20/2018 Td (Age >=7 Years) 08/09/2005,05/30/1995 Tdap 01/20/2013,08/22/2012 Zoster (Shingrix-RZV, recombinant) 11/16/2019, Family History Medical History Relation Name Comments Other Brother 4 Bipolar, HTN Asthma Child Diabetes Father Hypertension Father Other Father OA Hyperlipidemia Mother Hypertension Mother IA at 52 yo Other Paternal Grandmother GParent s, cad, ca uncertain type-?stomach, CVA Cancer-breast No Family History Relation Name Status Comments Brother 1 Alive Brother 2 Alive Brother 3 Alive Brother 4 Child Father Alive Mother Alive Paternal Grandmother Social History Tobacco Use Types Packs/Day Years Used Date Smoking Tobacco: Every Day Cigarettes 0.5 41.7 Started: 1983 Passive Smoke Exposure: Current Smokeless Tobacco: Never Tobacco Cessation:Ready to Q uit: Yes; Counseling Given: Not Answered Comments:Has patches at home, working on it Alcohol Use Standard Drinks/Week Comments No 0 (1 standard drink = 0.6 oz pur e alcohol) PHQ-2 Answer Date Recorded PHQ-2 TOTAL SCORE 2 12/24/2024 Social Connections Answer Date Recorded Do you often feel lonely or isolated from those around you? 0 11/09/2024 Financial Resource Strain Answer Date R ecorded Difficulty of Paying Living Expenses 3 11/09/2024 Difficulty of Paying Living Expenses Not on file 11/09/2024 Food Insecurity Answer Date Recorded Do you worry your food will run out before you are able to buy more? 1 11/09/2024 Transportation Needs Answer Date Record ed Does lack of transportation keep you from medica l appointments? 1 11/09/2024 Does lack of transportation keep you from work, meetings or getting things that you need? 1 11/09/2024 Housing Stability Answer Date Recorded What is your housing situation today? 1 11/09/2024 Utilities Answer Date Recorded Do you have trouble paying f or utilities (for example, heat, electricity, water, phone)? 1 11/09/2024 Comments No Sex and Gender Information Value Date Recorded Sex Assigned at Female 03/27/2020 2:31 PM CDT Legal Sex Female 5:24 AM MARBLE INSTALLATION HELPER Gender Identity Female 01/18/2022 2:49 PM CDT Sexual Orientation Not on file Obstetrics History Para Term AB IAB SAB Ectopic Multiple Livin g Live Births 3 3 2 1 0 0 0 0 0 3 3 Date Outcome GA Total Labor Labor/2nd/3rd Weight Sex Type Anes PTL Renu A1 A5 Name Clin Term Vag Living Term Vag Living Vag Living Last Filed Vital Signs Vital Sign Reading Time Taken Comments Blood Pressure 138/82 07/05/2025 4:01 PM CDT Pulse 87 07/05/2025 4:01 PM CDT Temperature 36.5 C (97.7 F) 11/09/2024 11:35 AM MARBLE INSTALLATION HELPER Respiratory Rate 15 08/08/2022 11:5 1 AM CDT Oxygen Saturation 98% 07/05/2025 4:01 PM CDT Inhaled Oxygen Concentration - - Weight 49.8 kg (109 lb 12.8 oz) 07/05/2025 4:01 PM CDT Height 157.5 cm (5' 2) 12/04/2024 10:0 8 AM MARBLE INSTALLATION HELPER Body Mass Index 20.08 12/04/2024 10:08 AM MARBLE INSTALLATION HELPER Plan of Treatment Upcoming Encounters Date Type Department Care Team (Late st Contact Info) Description 07/06/2025 11:15 AM CDT [place] [facility] [address] [place] [address] [place] [address] [address] [place], [place] [id number] Health Maintenance Due Date Last Done Comments HIV for age 15-65 [address] (for lung CA) ag e 50-80 2012 Pneumococcal series for age 50+ (2 of 2 - PCV) 11/20/2019 11/20/2018 Mammogram for age 45-75 11/23/2020 11/23/19 20, 06/12/2016, 03/24/2015, Additional history exists RSV vaccine for adults or (1 - Risk 60-74 years 1-dose series) 2022 Tetanus booster 01/20/2023 01/20/2013, 08/07, 08/09/2005, Additional history exists Pap test for age 21-65 11/16/2024 , 11/16/2019, 12/05/2015, Additional history exists COVID-19 vaccine series (2024- season) 2025 01/27/2021, 01/07/2021 Influenza Vaccine (#1) 2025 9, 07/19/2017, 07/10/2017, Additional history exists BMI (ht and wt on same day) for age 18+ 12/04/2025 12/04/2024, 11/09/2024, 02/07/2024, Additional history exists Depression screening for age 12+ 12/24/2025 12/24/2024, 12/24/2024, 11/24/2024, Additional history exists Fecal testing sDNA-FIT ([place] guard) for age 45-75 10/08/2027 10/08/2024 Lipids for age 45-75 02/06/2029 02/07/2024, 11/20/2022, 04/19/2021, Additional history exists Hepatitis C screening for ag e 18-79 Completed 02/18/2006 Hepatitis B series for 19+ Completed 04/11, 05/24/2014, 04/19/2014, Additional history exists Zoster (shingles) series for age 50+ Completed 11/16/2019, 07/24/2019 Medical Devices Implanted Type Area Transcriptionist Device Identifier Shelf Expiration Date Model / Serial / Lot Tvt Obturator System - [id number] Implanted:Qty: 1 on 03/20/2013 by Andria Alatorre MD at [facility] N/A: Urethra 06/20/2013 [id number] / NA / [id number] Procedures Procedure Name Priority Date/Time Associated Diagnosis Comments XR LEG LENGTH Routine 06/22/2025 11:03 AM CDT Chronic pain of left knee XR KNEE 1 VIEW BILATERAL Routine 06/22/2025 11:02 AM CDT Chronic pain of left knee URINALYSIS MICROSCOPIC Routine 06/08/2025 2:38 PM CDT UTI (urinary tract infection), uncomplicated URINE CULTURE Routine 06/08/2025 2:38 PM CDT UTI (urinary tract infection), uncomplicated URINALYSIS MACROSCOPIC - [facility] ONLY POC DIP (QUEST) Routine 06/08/2025 2:38 PM CDT UTI (urinary tract infection), uncomplicated XR KNEE 3 VIEWS LEFT Routine 06/01/2025 3:37 PM CDT Acute pain of left knee TSH Routine 04/05/2025 1:59 PM CDT Acquired hypothyroidism SDNA-FIT EXTERNAL (COLOGUARD) Routine 10/08/2024 9:04 AM MARBLE INSTALLATION HELPER Screening for colorectal cancer LIPID PANEL W REFLEX MEASURED LDL Routine 02/07/2024 3:29 PM CDT Type 2 diabetes mellitus with microalbuminuria, without long-term current use of insulin (HC) Mixed hyperlipidemia XR MAMMO BILAT SCREENING Routine 11/23/2019 10:15 AM MARBLE INSTALLATION HELPER 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 THIN PREP PAP SCREEN IMAGED Routine 11/16/2019 11:10 AM MARBLE INSTALLATION HELPER Cervical cancer screening ANTI HCV Routine 02/18/2006 11:13 AM CDT Abnorm Results Of Other Specif [facility] Study from Last 3 Months or Most Recently Relevant to Health Maintenance Results * XR LEG LENGTH (06/22/2025 11:03 AM CDT) Anatomical Region Laterality Modality LEGS, FEMURS Digital Radiogra phy 06/23/2025 11:4 0 AM CDT Narrative 06/23/2025 11:40 AM CDT For Patients: As a result of the Cures Act, medical imaging exams and procedure reports are released immediately into your electronic medical record. You may view this report before your referring provider. If you have questions, please contact your health care provider. INDICATION: Chronic left knee pain. TECHNIQUE: Single standing view of both knees. FINDINGS: Both hip joints appear normal. There is a right TKA. Medial and lateral compartment osteoarthritis in the left knee. Mild joint space narrowing in both ankles. Right leg may measures 80.2 cm from the ankle to the femoral head. Left leg measures 79.3 cm from the ankle joint to the femoral head. Dictated by Corwin York MD @ 06/23/2025 11:40:23 AM (Electronically Signed) Procedure Note Corwin York MD - 06/23/2025 For Patients: As a result of the Cures Act, medical imagingexams and procedure reports are released immediately into your electronicmedical record. You may view this report before your referring provider.If you have questions, please contact your health care provider. INDICATION: Chronic left knee pain. TECHNIQUE: Single standing view of both knees. FINDINGS: Both hip joints appear normal. There is a right TKA. Medial and lateral compartment osteoarthritis in theleft knee. Mild joint space narrowing in both ankles. Right leg may measures 80.2 cm from the ankle to the femoral head. Left leg measures 79.3 cm from the ankle joint to the femoral head. Dictated by Corwin York MD @ 06/23/2025 11:40:23 AM (Electronically Signed) us Isauro King DO GENERAL IMAGING Final Resu lt * XR KNEE 1 VIEW BILATERAL (06/22/2025 11:02 AM CDT) Anatomical Region Laterality Modality KNEES, KNEE L, KNEE R Digital Ra diography 06/23/2025 8:31 AM CDT Impressions 06/23/2025 8:31 AM CDT 1. No acute osseous injuries or abnormalities are noted. Dictated by Rober Dempsey MD @ 06/23/2025 8:31:06 AM Dictated by: Rober Dempsey MD @ 06/23/2025 08:31:12 (Electronically Signed) Narrative 06/23/2025 8:31 AM CDT For Patients: As a result of the Cures Act, medical imaging exams and procedure reports are released immediately into your electronic medical record. You may view this report before your referring provider. If you have questions, please contact your health care provider. INDICATION: Chronic pain of left knee TECHNIQUE: Knee radiograph 1 view bilateral COMPARISON: 06/01/2025 FINDINGS: Bone: No acute fractures or aggressive bone lesions are identified. Moderate diffuse osteopenia is present. Joint: A right total knee arthroplasty is present. Severe joint space narrowing is present in the medial compartment of the left knee without significant interval change. The patellofemoral compartment and the presence of a knee effusion cannot be assessed on the frontal view. Soft tissue: Unremarkable. No radiopaque foreign bodies are seen. Procedure Note Rober Dempsey MD - 06/23/2025 For Patients: As a result of the Cures Act, medical imagingexams and procedure reports are released immediately into your electronicmedical record. You may view this report before your referring provider.If you have questions, please contact your health care provider. INDICATION: Chronic pain of left knee TECHNIQUE: Knee radiograph 1 view bilateral COMPARISON: 06/01/2025 FINDINGS: Bone: No acute fractures or aggressive bone lesions are identified.Moderate diffuse osteopenia is present. Joint: A right total knee arthroplasty is present. Severe joint spacenarrowing is present in the medial compartment of the left knee withoutsignificant interval change. The patellofemoral compartment and thepresence of a knee effusion cannot be assessed on the frontal view. Soft tissue: Unremarkable. No radiopaque foreign bodies are seen. IMPRESSION: 1. No acute osseous injuries or abnormalities are noted. Dictated by Rober Dempsey MD @ 06/23/2025 8:31:06 AM Dictated by: Rober Dempsey MD @ 06/23/2025 08:31:12 (Electronically Signed) us Isauro King DO GENERAL IMAGING Final Resu lt * (ABNORMAL) POCT Urinalysis Dipstick Only [[id number]] (06/08/2025 2:38 PM CDT) SPECIFIC GRAVITY 1.020 1.001 - 1.035 06/08/2025 2:53 PM CDT [facility] PROTEIN 1+(A) NEGATIVE 06/08/2025 2:53 PM CDT [facility] GLUCOSE NEGATIVE NEGATIVE 06/08/2025 2:53 PM CDT [facility] KETONES NEGATIVE NEGATIVE 06/08/2025 2:53 PM CDT [facility] BILIRUBIN NEGATIVE NEGATIVE 06/08/2025 2:53 PM CDT [facility] OCCULT BLOOD 3+(A) NEGATIVE 06/08/2025 2:53 PM CDT [facility] NITRITE NEGATIVE NEGATIVE 06/08/2025 2:53 PM CDT [facility] PH 6.0 5.0 - 8.0 06/08/2025 2:53 PM CDT [facility] LEUKOCYTE ESTERASE 2+(A) NEGATIVE 06/08/2025 2:53 PM CDT [facility] Urine URINE SPECIMEN / Unknown Non-Blood / Unknown 06/08/2025 2:38 PM CDT 06/08/2025 2:38 PM CDT us Shruthi Delaney MD URINE Final R esult [facility] [address] [place] [address], [place] [phone] [facility] [address] [place] [address], * (ABNORMAL) URINALYSIS MICROSCOPIC [31534.1] - routine (06/08/2025 2:38 PM CDT) RBC 3-5(A) 0-2, None Seen /HPF 06/09/2025 12:14 AM CDT [facility] WBC >100(A) 0-2, 3-5, None Seen /HPF 06/09/2025 12:14 AM CDT [facility] BACTERIA Moderate(A ) None Seen, Rare, Few Bacteria/ HPF 06/09/2025 12:14 AM CDT [facility] EPITHELIAL CELLS Moderate(A ) None Seen, Few Epi/HPF 06/09/2025 12:14 AM CDT [facility] WHITE CELL CLUMPS Present(A) (none) 06/09/2025 12:14 AM CDT [facility] HYALINE CASTS 0-2 0-2, 3-5 /LPF 06/09/2025 12:14 AM CDT [facility] Urine URINE SPECIMEN / Unknown Non-Blood / Unknown 06/08/2025 2:38 PM CDT 06/08/2025 2:38 PM CDT us Shruthi Delaney MD URINE Final R esult [facility] [address] [place] [address], * (ABNORMAL) URINE CULTURE [93594.2] (06/08/2025 2:38 PM CDT) CULTURE RESULT(A) 06/11/2025 7:20 AM CDT [facility] CULTURE 10,000-50,000 CFU/mL Proteus mirabilis 06/11/2025 7:20 AM CDT [facility] CULTURE <10,000 CFU/mL Multiple organisms probable contaminants 06/11/2025 7:20 AM CDT [facility] Urine URINE SPECIMEN / Unknown Non-Blood / Unknown 06/08/2025 2:38 PM CDT 06/08/2025 2:38 PM CDT Narrative Organism Antibiotic Method Susceptibility Proteus mirabilis TRIMETHOPRIM/SULF <=1/19: S Proteus mirabilis AMPICILLIN <=2: S Proteus mirabilis CEFAZOLIN 4: I Proteus mirabilis CEFAZOLIN-UC 4: S Comment:Cefazolin-UC interpretations are for therapy of uncomplicated UTIs due to E.coli, K.pneumoniae, or P.mirablis. Cefazolin breakpoint is used as a surrogate to predict results for the oral agents - cefdinir, cefuroxime, and cephalexin, when used for therapy of uncomplicated UTIs due to E coli, K, pneumoniae, and P. mirabilis. The FDA recommends cefadroxil susceptibility can be deduced from cefazolin. Proteus mirabilis GENTAMICIN <=1: S Proteus mirabilis CEFTRIAXONE <=0.25: S Proteus mirabilis CEFTAZIDIME <=0.5: S Proteus mirabilis LEVOFLOXACIN <=0.12: S Proteus mirabilis CIPROFLOXACIN <=0.06: S Proteus mirabilis PIPERACILLIN/TAZO <=4: S Proteus mirabilis AMPICILLIN/SULBACTAM <=2: S Proteus mirabilis CEFEPIME <=0.12: S Proteus mirabilis MEROPENEM <=0.25: S Proteus mirabilis NITROFURANTOIN R us Shruthi Delaney MD MICROBIOLOGY Final R esult [facility] [address] [place] [address], [place] * XR KNEE 3 VIEWS LEFT (06/01/2025 3:37 PM CDT) Anatomical Region Laterality Modality KNEES, KNEE L Computed Radiogr aphy 06/02/2025 11:0 7 AM CDT Narrative 06/02/2025 11:07 AM CDT For Patients: As a result of the Cures Act, medical imaging exams and procedure reports are released immediately into your electronic medical record. You may view this report before your referring provider. If you have questions, please contact your health care provider. Indication: Knee pain Technique: Right knee 3 views Comparison: 04/24/2023 Findings: Medial compartment narrowing and spurring with increased varus angulation. Lateral compartment spurring. Osteopenia. Joint effusion. No fracture. Patellofemoral narrowing and spurring. Impression: Severe medial compartment degenerative joint disease which has progressed in the interim. Moderate patellofemoral compartment degenerative joint disease. Mild-moderate joint effusion. Dictated by Clyde Harper MD @ 06/02/2025 11:07:57 AM (Electronically Signed) Procedure Note Clyde Harper MD - 06/02/2025 For Patients: As a result of the Cures Act, medical imagingexams and procedure reports are released immediately into your electronicmedical record. You may view this report before your referring provider.If you have questions, please contact your health care provider. Indication: Knee pain Technique: Right knee 3 views Comparison: 04/24/2023 Findings: Medial compartment narrowing and spurring with increased varus angulation.Lateral compartment spurring. Osteopenia. Joint effusion. No fracture.Patellofemoral narrowing and spurring. Impression: Severe medial compartment degenerative joint disease which has progressedin the interim. Moderate patellofemoral compartment degenerative joint disease.Mild-moderate joint effusion. Dictated by Clyde Harper MD @ 06/02/2025 11:07:57 AM (Electronically Signed) us Mere Rivera STATION MECHANIC HELPER GENERAL IMAGING Final Res ult * (ABNORMAL) TSH (04/05/2025 1:59 PM CDT) TSH 13.45(H) 0.40 - 4.50 mIU/L [facility] Liam Blood BLOOD SPECIMEN / Unknown 04/05/2025 1:59 PM CDT 04/05/2025 1:59 PM CDT Merejimmy Rivera STATION MECHANIC HELPER CHEMISTRY Final Res ult [facility] [address] [place] [address], [facility] [address] [place] [address] * SDNA-FIT EXTERNAL (COLOGUARD) [[id number]] (10/08/2024 9:04 AM MARBLE INSTALLATION HELPER) NONINV COLON CA DNA+OCC BLD SCRN STL-IMP Negative Negative 10/15/2024 8:13 AM MARBLE INSTALLATION HELPER [employer] (CLIA #:[id number]) Comment: NEGATIVE TEST RESULT. A negative Cologuard result indicates a low likelihood that a colorectal cancer (CRC) or advanced adenoma (adenomatous polyps with more advanced pre-malignant features) is present. The chance that a person with a negative Cologuard test has a colorectal cancer is less than 1 in 1500 (negative predictive value >99.9%) or has an advanced adenoma is less than 5.3% (negative predictive value 94.7%). These data are based on a prospective cross-sectional study of 10,000 individuals at average risk for colorectal cancer who were screened with both Cologuard and colonoscopy. (Abril Slater et al, N Engl J Med 2014;370(14):7320-2920) The normal value (reference range) for this assay is negative. COLOGUARD RE-SCREENING RECOMMENDATION: Periodic colorectal cancer screening is an important part of preventive healthcare for asymptomatic individuals at average risk for colorectal cancer. Following a negative Cologuard result, the [place] [employer] and U.S. Multi-Society Task Force screening guidelines recommend a Cologuard re-screening interval of 3 years. References: [place] [employer] Guideline for Colorectal Cancer Screening: https://www.cancer.org/cancer/nswws-ayfido-qiyepl/yrcktqpbu-fbznyswme-pjxrcdv/ac s-rec ommendations.html.; [place] DK, Dinesh VILLEDA, Marino GARCIA, Colorectal Cancer Screening: Recommendations for Physicians and Patients from the U.S. Multi-Society Task Force on Colorectal Cancer Screening , Am J Gastroenterology 2017; 112:6253-7685. TEST DESCRIPTION: Composite algorithmic analysis of stool DNA-biomarkers with hemoglobin immunoassay. Quantitative values of individual biomarkers are not reportable and are not associated with individual biomarker result reference ranges. Cologuard is intended for colorectal cancer screening of adults of either sex, 45 years or older, who are at average-risk for colorectal cancer (CRC). Cologuard has been approved for use by the U.S. FDA. The performance of Cologuard was established in a cross sectional study of average-risk adults aged 50-84. Cologuard performance in patients ages 45 to 49 years was estimated by sub-group analysis of near-age groups. Colonoscopies performed for a positive result may find as the most clinically significant lesion: colorectal cancer [4.0%], advanced adenoma (including sessile serrated polyps greater than or equal to 1cm diameter) [20%] or non- advanced adenoma [31%]; or no colorectal neoplasia [45%]. These estimates are derived from a prospective cross-sectional screening study of 10,000 individuals at average risk for colorectal cancer who were screened with both Cologuard and colonoscopy. (Abril Lara. et al, N Engl J Med 2014;370(14):0014-6657.) Cologuard may produce a false negative or false positive result (no colorectal cancer or precancerous polyp present at colonoscopy follow up). A negative Cologuard test result does not guarantee the absence of CRC or advanced adenoma (pre-cancer). The current Cologuard screening interval is every 3 years. ([place] [employer] and U.S. Multi-Society Task Force). Cologuard performance data in a 10,000 patient pivotal study using colonoscopy as the reference method can be accessed at the following location: www.[employer]results. Additional description of the Cologuard test process, warnings and precautions can be found at www.[employer].com. Stool specimen (specimen) (Rectum) 10/08/2024 9:04 AM MARBLE INSTALLATION HELPER 10/13/2024 7:34 AM MARBLE INSTALLATION HELPER Mere Rivera STATION MECHANIC HELPER URINE Final Res ult [employer] [facility] (CLIA #:[id number]) [place] [address], * LIPID PANEL W REFLEX MEASURED LDL (02/07/2024 3:29 PM CDT) CHOLESTEROL,TOTAL 147 100 - 199 mg/dL 02/07/2024 10:37 PM CDT [facility] Comment: Cholesterol, Total Reference Ranges Desirable <200 mg/dL Borderline 200-239 mg/dL High >=240 mg/dL TRIGLYCERIDES 148 <150 mg/dL 02/07/2024 10:37 PM CDT [facility] HDL CHOLESTEROL 41 >40 mg/dL 10:37 PM CDT [facility] NON-HDL CHOLESTEROL 106 <145 mg/dl 02/07/2024 10:37 PM CDT [facility] CHOL/HDL RATIO 3.59 <4.50 02/07/2024 10:37 PM CDT [facility] LDL CHOLESTEROL 76 <=130 mg/dL 02/07/2024 10:37 PM CDT [facility] VLDL CHOLESTEROL 30 <=30 mg/dL 02/07/2024 10:37 PM CDT [facility] PROVIDER ORDERED STATUS RANDOM 02/07/2024 10:37 PM CDT [facility] Blood BLOOD SPECIMEN / Unknown Venipuncture / Unknown 02/07/2024 3:29 PM CDT 02/07/2024 3:29 PM CDT Mere Rivera STATION MECHANIC HELPER CHEMISTRY Final Res ult [facility] [address] [place] [address], * XR MAMMO BILAT SCREENING (11/23/2019 10:15 AM MARBLE INSTALLATION HELPER) Anatomical Region Laterality Modality BREASTS, Breast Left, Breast Right Bilateral Mammography Impressions 11/24/2019 4:16 PM MARBLE INSTALLATION HELPER There is no radiographic evidence for malignancy. Recommend annual mammograms. A lay language report of this examination will be provided to the patient. MAMMOGRAM ASSESSMENT: ACR 1 Negative Narrative 11/24/2019 4:16 PM MARBLE INSTALLATION HELPER XR MAMMO BILAT SCREENING [[id number]] CLINICAL HISTORY: This is an asymptomatic 59 y.o. patient. INDICATION FOR EXAM: Mammogram Screening. TECHNIQUE: CC & MLO views were obtained. This digital study was evaluated with the assistance of Computer-Aided Detection. COMPARISON FILM: Yes 06/12/16 03/24/15 FINDINGS: Mammographically, the breast tissue has scattered fibroglandular densities. There are no dominant masses, suspicious micro calcifications or areas of architectural distortion. us Jocelyn Bro DO MAMMO Final Resul t * AUTOMATION SALES MANAGER THIN PREP PAP SCREEN IMAGED (11/16/2019 11:10 AM MARBLE INSTALLATION HELPER) Case Report Gynecologic Cytology Report Case: [id number] Authorizing Provider: Jocelyn Bro DO Collected: 11/16/2019 1110 Ordering Location: [facility] Received: 11/16/2019 1126 Clinic First Screen: Casi Wu Specimen: AUTOMATION SALES MANAGER ThinPrep Vial Screening, Cervical 11/26/2019 1:35 PM MARBLE INSTALLATION HELPER [facility] INTERPRETATION/ RESULT NEGATIVE FOR INTRAEPITHELIAL LESION OR MALIGNANCY (NIL) (none) 11/26/2019 1:35 PM MARBLE INSTALLATION HELPER [facility] at [address]4 MARBLE INSTALLATION HELPER SPECIMEN ADEQUACY Satisfactory for evaluation Endocervical component present 11/26/2019 1:35 PM MARBLE INSTALLATION HELPER [facility] HPV REQUEST HPV and PAP 11/26/2019 1:35 PM MARBLE INSTALLATION HELPER [facility] Date of LMP NA 11/26/2019 1:35 PM MARBLE INSTALLATION HELPER [facility] Last Pap Date 12/05/15 11/26/2019 1:35 PM MARBLE INSTALLATION HELPER [facility] Last Pap Result NIL 0 1:35 PM MARBLE INSTALLATION HELPER [facility] Abnormal Pap or Minden Bx in last 5 years No 11/26/2019 1:35 PM MARBLE INSTALLATION HELPER [facility] Menstrual Status Ablation 11/26/2019 1:35 PM MARBLE INSTALLATION HELPER [facility] Minden Bx Done Today No 11/26/2019 1:35 PM MARBLE INSTALLATION HELPER [facility] Additional Information None given 11/26/2019 1:35 PM MARBLE INSTALLATION HELPER [facility] Comment: Cytology is screened at [facility] - [address], [place] [address] and [facility] - [address], [place] [address] and [facility] - [address] [place] [address] Interpreted at [facility] - [address], [place] [address] Automated Review Successful 11/26/2019 1:35 PM MARBLE INSTALLATION HELPER [facility] Comment:Specimen processed s uccessfully by automated siebel administrator device, ThinPrep Imaging System, [employer] ANCILLARY TESTING AUTOMATION SALES MANAGER HPV Ordered, Please see separate report 11/26/2019 1:35 PM MARBLE INSTALLATION HELPER [facility] Note The pap test is a screening technique, not a diagnostic procedure. It is used primarily to screen for squamous cancers and precursor lesions. Published studies have shown that it is subject to both false negative and false positive results. The pap test should not be used as the sole means to diagnose or exclude pre-malignant and malignant lesions. 11/26/2019 1:35 PM MARBLE INSTALLATION HELPER [facility] Other (Cervical) Non-Blood / Unknown 11/16/2019 11:10 AM MARBLE INSTALLATION HELPER 11/16/2019 11:26 AM MARBLE INSTALLATION HELPER us Jocelyn Bro DO PATHOLOGY/CYTOLOGY Final Re sult [facility] [address] [place] [address], [place] * ANTI HCV (02/18/2006 11:13 AM CDT) ANTI HCV Non-reactiv e [facility] Blood specimen (specimen) BLOOD SPECIMEN / Unknown 02/18/2006 11:13 AM CDT 02/18/2006 11:12 AM CDT Narrative [facility] [place] - 02/20/2006 9:23 AM CDT Testing Performed By [place], [place] us Livier Umana MD SEND OUTS Final Result [facility] [address] [place] [address] from Last 3 Months or Most Recently Relevant to Health Maintenance Insurance [facility] [place] [id number] [facility] Advance Directives * Full Code (Latest Code Status on File) Date Activated Date Inactivated Comments 03/31/2013 11:49 AM 03/31/2013 5:20 PM * Full Code Date Activated Date Inactivated Comments 03/20/2013 7:36 AM 03/20/2013 8:49 PM Care Teams Environmental Consultant Relationship Specialty [place] [address] [place] [address] PCP - General Nurse Practitioner 09/07/20 Walter Rowe MD [address] [facility] [address] [place] [address] Urology Surgery - Urology 02/16/14
[2025-07-05] MEDS: IPRAT-ALBUT 0.5-2.5 MG/3 ML NEB 1 NEB IH ×2 (17:22→18:45)
[2025-07-05 17:33] VITALS: O2SAT 99
[2025-07-05 17:33] LABS: HCO3 VBG 29 mmol/L (21-28); Lactate* 0.9 mmol/L (0.5-1.9); PCO2 VBG 48 mmHG (40-50); PO2 VBG 34.4 mmHG (25-47); pH VBG 7.390 (7.32-7.43)
[2025-07-05 17:36] LABS: Hematocrit* 38.8 % (33.0-51.0); Hemoglobin* 13.1 gm/dL (12.0-16.0); Immature Granulocytes Abs Auto 0.01 K/uL (0.00-0.30); Immature Granulocytes Pct Auto 0.1 %; Mean Corpuscular HGB Conc 34 gm/dL (32-36); Mean Corpuscular Hemoglobin 29 pg (26-34); Mean Corpuscular Volume 86 fL (80-100); RDW Coefficient of Variation % 12.8 % (11.5-15.5); Red Blood Count* 4.50 m/uL (4.00-5.20); White Blood Count* 8.60 K/uL (4.50-11.00)
[2025-07-05 17:37] LABS: Lymphocytes Absolute Auto 1.10 K/uL (0.90-2.90); Slide Review Reflex No
[2025-07-05 17:51] LABS: Chloride* 92 mmol/L (96-114)
[2025-07-05 17:52] LABS: Albumin* 4.4 g/dL (3.3-5.0); Potassium* 3.6 mmol/L (3.6-5.1); Sodium* 128 mmol/L (135-149)
[2025-07-05 17:54] LABS: Blood Urea Nitrogen* 3 mg/dL (7-30); Creatinine* 0.5 mg/dL (0.5-1.5); Est. Creatinine Clearance* 45.95; Estimated Glomerular Filt Rate 106 ml/min
[2025-07-05 17:55] LABS: Alanine Aminotransferase* 17 U/L (4-35); Alkaline Phosphatase* 76 U/L (40-150); Anion Gap 7 mEq/L (7-15); Aspartate Amino Transferase* 29 U/L (12-35); Bilirubin Total* 0.4 mg/dL (0.1-1.5); Calcium* 9.4 mg/dL (8.4-10.6); Carbon Dioxide* 29 mmol/L (20-32); Glucose* 135 mg/dL (60-115); INR 0.99 (0.91-1.10); Prothrombin Time 13.8 Seconds; Total Protein* 7.0 g/dL (6.0-8.3)
[2025-07-05 17:58] LABS: D Dimer Quantitative* 1.28 ug/ml (0.00-0.50)
[2025-07-05 18:09] LABS: NT Pro B Type NatriureticPept* 80 pg/mL (See Note)
[2025-07-05 18:13] LABS: PCR FLU A Negative PCR FLU A (Negative); PCR FLU B Negative PCR FLU B (Negative); PCR RSV Negative PCR RSV (Negative); SARS PCR* Negative SARS-CoV-2 (Negative)
--- NOTE | 2025-07-05 18:20 | CRLHL7_ITS ---
For Patients: As a result of the Century Cures Act, medical imaging exams and procedure reports are released immediately into your electronic medical record. You may view this report before your referring provider. If you have questions, please contact your health care provider. INDICATION: Dyspnea on exertion. Elevated D-dimer. COMPARISON: 02/05/2019 CT of the chest TECHNIQUE: CT pulmonary angiogram of the chest with intravenous contrast (95 milliliters Isovue 370). Reconstructed images/MIPS were created. FINDINGS: Airways: The trachea and central airways are clear. There is mild diffuse bronchial wall thickening. There is multifocal distal airway mucous plugging. Lungs: Emphysematous change in the lungs. Spiculated solid right upper lobe apical pulmonary nodule measuring 13 x 10 millimeters which is new since 02/05/2019 (). There are several sub 5 millimeter solid pulmonary nodules which are unchanged since 02/05/2019 such as a solid micronodule in the left upper lobe on series 6, image 46. There is a punctate calcified granuloma in the left lower lobe. Pleura: No effusion. Lymph nodes: No bulky thoracic lymphadenopathy. Heart: Normal size. There is coronary artery calcification. Aorta: Moderate calcification. Pulmonary artery: Normal caliber of the main pulmonary artery. No pulmonary embolism is detected. Chest wall: Normal. Bones: Diffuse osseous demineralization. Similar chronic mild multilevel anterior vertebral body wedging most conspicuous in the inferior thoracic spine. There are osseous degenerative changes. IMPRESSION: 1. No pulmonary embolism is detected. 2. Emphysematous lungs with multifocal distal airway mucous plugging. 3. Spiculated solid right upper lobe apical pulmonary nodule measuring 13 x 10 millimeters which is new since 02/05/2019. For a incidental nodule of this size, initial management considerations include PET-CT, biopsy, or follow-up low-dose noncontrast CT in 3 months. Please note that all CT scans at this facility use dose modulation, iterative reconstruction, and/or weight-based dosing when appropriate to reduce radiation dose to as low as reasonably achievable. Dictated by Andrey Maher MD @ 07/05/2025 7:41:48 PM (Electronically Signed)
[2025-07-05 19:09] VITALS: BP 138/73; PULSE 82; RESP 20; O2SAT 95
== END 2025-07-05 20:26 | disposition home or self-care (01) ==
PROVIDERS: Emergency Provider Family Medicine; PCP Nurse Practitioner Family
DX: J44.1 Chronic obstructive pulmonary disease with (acute) exacerbation (principal); E87.1 Hypo-osmolality and hyponatremia; R91.8 Other nonspecific abnormal finding of lung field
CPT/HCPCS: 36415; 71045; 71275; 80053; 82803; 83605; 83880; 84484; 85025; 85379; 85610; 85730; 86140; 87631; 93005; 94761; 99284; 99285; Q9967

== ENCOUNTER 2025-09-03 14:45 | Emergency (ER) | payer MEDICAID, SELFPAY ==
[2025-09-03 14:48] VITALS: BP 155/81; PULSE 73; RESP 20; TEMP 36.4; O2SAT 96; BMI 20.1
--- OUTSIDE RECORDS SUMMARY | 2025-09-03 14:48 | XMS_ITS | Clinical Summary ---
Author Organization [facility] Address [address] [place] [address] Care Team Providers Care Senior Net Web Developer Name Role Phone Walter Rowe MD Unavailable Mere Rivera NP Primary Care Provider [phone] Allergies Active Allergy Reactions Criticality Noted Date [...] n of right eustachian tube Inhale 1 [place] to both nostrils two times daily. 48 mL 11 02/07/20 24 Active montelukast (SINGULAIR) 10 mg tabletIndications:En vironmental allergies Take 1 Tablet (10 mg) by mouth at bedtime. 90 Tablet 3 02/07/20 24 Active Additional Information Patient not taking.Reported on 07/09/2025 fenofibrate nanocrystallized (TRICOR) 145 mg tabletIndications:Mi xed [...] Spasm. 90 Tablet 3 12/04/19 25 Active albuterol HFA (Ventolin HFA) 90 mcg/actuation inhalerIndications:C OPD, mild (HC) INHALE 1 TO 2 PUFFS BY MOUTH EVERY 4 HOURS NEEDED FOR SHORTNESS OF BREATH OR FOR WHEEZE 54 Each 3 07/01/20 25 Active albuterol-ipratropiu m (DUONEB) (2.5-0.5 mg) in 3 mL NEBULIZATION solution Inhale 1 Neb via a nebulizer every 6 hours if needed for Shortness Of Breath. 07/06/20 25 Active doxycycline 100 mg tabletIndications:CO PD exacerbation (HC) Take 1 Tablet (100 mg) by mouth two times daily. 10 Tablet 07/09/20 25 Active meloxicam 15 mg tabletIndications:Ch ronic pain of left knee Take 1 Tablet (15 mg) by mouth once daily. 90 Tablet 1 07/09/20 25 Active levothyroxine (SYNTHROID) 100 mcg tabletIndications:Ac quired hypothyroidism Take 1 Tablet (100 mcg) by mouth before breakfast. 90 Tablet 3 07/18/20 25 Active Active Problems Problem Noted Date Diagnosed Date [...] Rheumatologic etiology. February 2017: Saw Dr. Smith, [facility], recommended Fibromyalgia program at [place] and Rheumatology consult. Lyrica increased. Bilateral low [...] Resolved Date Pain medication agreement 04/16/2016 Overview (07/16/2025): 04/16/16. Chronic lumbar degenerative changes/spinal stenosis. Recommend follow up with Orthopedics. Pecocet 5/325 twice daily as needed pain, #60/month [facility]. Lyrica 100mg twice daily. Adding glucosamine. Acupuncture as needed, can add OMT and pool physical therapy. Dr. Bro Patient established with [facility] - recommended epidural injection. D/c Tramadol Diagnosis Code replaced due to regulatory update Midline low back pain 12/05/20152015 Diabetes mellitus, type 2 11/02/2012 Controlled substance agreeme nt signed and scanned 04/20/11 10/21/2012 04/16/2016 Overview (04/13/2014): Percocet 60 tab a month, DR Umana, and [facility]. 02/2013 reviewed 04/13/14 - increased tramadol to 200 mgXR daily and percocet only as needed flare up pain, 40 tablets a month. Celebrex daily. Adjusting medications. Chronic back pain 01/25/2012 01/10/2016 Pain medication agreement 04/18/2011 Overview (07/16/2025): oxycodone refill needs to be sent to pain clinic per LIVIER UMANA MD (see refill encounter dated 08/20/12) ... MARICARMEN DAVIS RN, 08/21/2012 10:54 PM Controlled substance agreement for percocet 30 tab a month on file and signed 04/18/11. Designated pharmacy: [facility] Prescribing physician: Mariusz Diagnosis: back pain Diagnosis Code replaced due to regulatory update Depressive disorder, not elsewhere classified 12/27/19 06 01/30/2013 BRONCHITIS - ACUTE 05/18/2005 3 SINUSITIS - ACUTE 04/11/2005 01/30/2013 MALAISE AND FATIGUE NEC 02/09/200201/06 Wheezing 10/28/2000 01/30/2013 Encounters Date Type Department Care Team Description 09/03/2025 Telephone [facility] [address] [place] [address] Mere Rivera NP Refill Request (albuterol-ipratropi um (DUONEB) (2.5-0.5 mg) in 3 mL NEBULIZATION solution//) 08/24/2025 Telephone [facility] [address] [place] [address] Mere Rivera NP Form (PHYSICIAN ORDER) 07/17/2025 Refill [facility] [address] [place] [address] Mere Rivera, COLBY Refill Request (Levothyroxine) 07/09/2025 11:15 AM CDT Office Visit [facility] [address] [place] [address] Mere Rivera NP Hospital F/U ([facility] ) 07/09/2025 Travel 07/05/2025 4:00 PM CDT Office Visit [facility] [address] [place] [address] Shruthi Delaney MD Sinus Problem (Sinus pain and pressure, cough, shortness of breath x 5 days ) 07/05/2025 Orders Only [facility] Scanner 1 scan: (1-Ord) [facility], CT ANGIO CHEST PE PROTOCOL, 07/05/2025 07/05/2025 Orders Only [facility] Scanner 1 scan: (1-Ord) [facility], XR CHEST 1V PORTABLE, 07/05/2025 07/05/2025 Travel 07/01/2025 Refill [facility] [address] [place] [address] Mree Rivera NP Refill Request (Albuterol inhaler) 06/29/2025 Refill [facility] [address] [place] [address] Mere Rivera NP Refill Request (Meloxicam) 06/22/2025 11:05 AM CDT Ancillary Procedure [facility] [address] [place] [address] 06/22/2025 11:00 AM CDT Ancillary Procedure [address] [address] 06/22/2025 10:30 AM CDT [facility] [address] [place] [address] Isauro King DO Knee Pain/problem (Left knee) 06/22/2025 Travel 06/10/2025 10:20 AM CDT Office Visit [facility] [address] [place] [address] James Harry MD Knee Pain/problem (Pain of left knee) 06/09/2025 Travel 06/08/2025 2:20 PM CDT Office Visit [facility] [address] [facility] [place] [address] Shruthi Delaney MD Urinary Problem (Frequent urination, low back pain, abdominal pressure, blood in urine x 5 days ) 06/08/2025 Travel from Last 3 Months Immunizations Immunization [...] Other Father OA Hyperlipidemia Mother Hypertension Mother PA at 52 yo Other Paternal Grandmother GParent s, cad, ca uncertain type-?stomach, CVA Cancer-breast No Family History Relation Name Status Comments Brother 1 Alive Brother 2 Alive Brother 3 Alive Brother 4 Child Father Alive Mother Alive Paternal Grandmother Social History Tobacco Use Types Packs/Day Years Used Date Smoking Tobacco: Every Day Cigarettes 0.5 41.9 Started: 1983 Passive Smoke Exposure: Current Smokeless [...] PM CDT Legal Sex Female 5:24 AM MAIL SORTING SUPERVISOR Gender Identity Female 01/18/2022 2:49 PM CDT [...] Sign Reading Time Taken Comments Blood Pressure 124/70 07/09/2025 11:20 AM CDT Pulse 83 07/09/2025 11:20 AM CDT Temperature 36.5 C (97.7 F) 11/09/2024 11:35 AM MAIL SORTING SUPERVISOR Respiratory Rate 15 08/08/2022 11:51 AM CDT Oxygen Saturation 95% 07/09/2025 11:20 AM CDT Inhaled Oxygen Concentration - - Weight 49 kg (108 lb) 07/09/2025 11:20 AM CDT Height 157.5 cm (5' 2) 07/09/2025 11:20 AM CDT Body Mass Index 19.75 07/09/2025 11:20 AM CDT Plan of Treatment Upcoming Encounters Date Type Department Care Team (Late st Contact Info) Description 09/08/2025 10:25 AM MAIL SORTING SUPERVISOR Office Visit [facility] [address] [facility] [place] [address] Mere Rivera AUDIO/VISUAL MANAGER [address] [place] [address] Health Maintenance Due Date Last Done Comments HIV for age 15-65 [address] (for lung CA) ag e 50-80 2012 RSV vaccine for adults or (1 - Risk 50-74 years 1-dose series) 2012 Pneumococcal series for age 50+ (2 of 2 - PCV) 11/20/2019 11/20/2018 Mammogram for age 45-75 11/23/2020 11/23/19 20, 06/12/2016, 03/24/2015, Additional history exists Tetanus booster 01/20/2023 01/20/2013, 08/07, 08/09/2005, Additional history exists Pap test for age 21-65 11/16/2024 0, 11/16/2019, 12/05/2015, Additional history exists COVID-19 vaccine series ( season) 2025 01/27/2021, 01/07/2021 Influenza Vaccine (#1) 2025 9, 07/19/2017, 07/10/2017, Additional history exists Depression screening for age 12+ 12/24/2025 12/24/2024, 12/24/2024, 11/24/2024, Additional history exists BMI (ht and wt on same day) for age 18+ 07/09/2026 07/09/2025, 12/04/2024, 11/09/2024, Additional history exists Fecal testing sDNA-FIT ([place] guard) for age 45-75 10/08/2027 10/08/2024 Lipids for age 45-75 02/06/2029 02/07/2024, 11/20/2022, 04/19/2021, Additional history exists Hepatitis C screening for ag e 18-79 Completed 02/18/2006 Hepatitis B series for 19+ Completed 04/11, 05/24/2014, 04/19/2014, Additional history exists Zoster (shingles) series for age 50+ Completed 11/16/2019, 07/24/2019 Medical Devices Implanted Type Area Armhole Baster Jumpbasting Device Identifier Shelf Expiration Date Model / Serial / Lot Tvt Obturator System - [id number] Implanted:Qty: 1 on 03/20/2013 by Andria Alatorre MD at [facility] N/A: Urethra 06/20/2013 [id number] / NA / [id number] Procedures Procedure Name Priority Date/Time Associated Diagnosis Comments CBC WITH AUTO DIFFERENTIAL Routine 07/09/2025 12:15 PM CDT Postmenopausal bleeding COMP METABOLIC PANEL Routine 07/09/2025 12:15 PM CDT Low sodium levels Type 2 diabetes mellitus with microalbuminuria, without long-term current use of insulin (HC) CBC WITH AUTO DIFFERENTIAL Routine 07/09/2025 12:15 PM CDT Postmenopausal bleeding TSH Routine 07/09/2025 12:15 PM CDT Acquired hypothyroidism HEMOGLOBIN A1C MONITORING (POCT) Routine 07/09/2025 12:15 PM CDT Type 2 diabetes mellitus with microalbuminuria, without long-term current use of insulin (HC) SCAN-CT INTERPRETATION 12:00 AM CDT SCAN-RADIOLOGY REPORT 07/05/2025 12:00 AM CDT XR LEG LENGTH Routine 06/22/2025 11:03 AM CDT Chronic pain of left knee XR KNEE 1 VIEW BILATERAL Routine 06/22/2025 11:02 AM CDT Chronic pain of left knee URINALYSIS MICROSCOPIC Routine 2:38 PM CDT UTI (urinary tract infection), uncomplicated URINE CULTURE Routine 06/08/2025 2:38 PM CDT UTI (urinary tract infection), uncomplicated URINALYSIS MACROSCOPIC - [facility] ONLY POC DIP ([facility]) Routine 06/08/2025 2:38 PM CDT UTI (urinary tract infection), uncomplicated SDNA-FIT EXTERNAL (COLOGUARD) Routine 10/08/2024 9:04 AM MAIL SORTING SUPERVISOR Screening for colorectal cancer LIPID PANEL W REFLEX MEASURED LDL Routine 02/07/2024 3:29 PM CDT Type 2 diabetes mellitus with microalbuminuria, without long-term current use of insulin (HC) Mixed hyperlipidemia XR MAMMO BILAT SCREENING Routine 11/23/2019 10:15 AM MAIL SORTING SUPERVISOR Breast cancer screening RECORDS MANAGEMENT ANALYST THIN PREP PAP SCREEN IMAGED Routine 11/16/2019 11:10 AM MAIL SORTING SUPERVISOR Cervical cancer screening ANTI HCV Routine 02/18/2006 11:13 AM CDT Abnorm Results Of Other [facility] Study from Last 3 Months or Most Recently Relevant to Health Maintenance Results * (ABNORMAL) CBC WITH AUTO DIFFERENTIAL (07/09/2025 12:15 PM CDT) WHITE BLOOD CELL COUNT 15.6(H) 3.8 - 10.8 Thousand/ uL 07/10/2025 3:36 AM CDT [facility] RED BLOOD CELL COUNT 4.63 3.80 - 5.10 Million/u L 07/10/2025 3:36 AM CDT [facility] HEMOGLOBIN 13.7 11.7 - 15.5 g/dL 07/10/2025 3:36 AM CDT [facility] HEMATOCRIT 41.3 35.0 - 45.0 % 07/10/2025 3:36 AM CDT [facility] MCV 89.2 80.0 - 100.0 fL 07/10/2025 3:36 AM CDT [facility] MCH 29.6 27.0 - 33.0 pg 07/10/2025 3:36 AM CDT [facility] MCHC 33.2 32.0 - 36.0 g/dL 07/10/2025 3:36 AM CDT [facility] Comment: For adults, a slight decrease in the calculated MCHC value (in the range of 30 to 32 g/dL) is most likely not clinically significant; however, it should be interpreted with caution in correlation with other red cell parameters and the patient's clinical condition. RDW 13.4 11.0 - 15.0 % 07/10/2025 3:36 AM CDT [facility] PLATELET COUNT 383 140 - 400 Thousand/ uL 07/10/2025 3:36 AM CDT [facility] MPV 10.8 7.5 - 12.5 fL 07/10/2025 3:36 AM CDT [facility] NEUTROPHILS 80 % 07/10/2025 3:36 AM CDT [facility] LYMPHOCYTES 12.3 % 07/10/2025 3:36 AM CDT [facility] MONOCYTES 7.4 % 07/10/2025 3:36 AM CDT [facility] EOSINOPHILS 0.1 % 07/10/2025 3:36 AM CDT [facility] BASOPHILS 0.2 % 07/10/2025 3:36 AM CDT [facility] ABSOLUTE NEUTROPHILS 74528(H) 1500 - 7800 cells/uL 07/10/2025 3:36 AM CDT [facility] ABSOLUTE LYMPHOCYTES 1919 850 - 3900 cells/uL 07/10/2025 3:36 AM CDT [facility] ABSOLUTE MONOCYTES 1154(H) 200 - 950 cells/uL 07/10/2025 3:36 AM CDT [facility] ABSOLUTE EOSINOPHILS 16 15 - 500 cells/uL 07/10/2025 3:36 AM CDT [facility] ABSOLUTE BASOPHILS 31 0 - 200 cells/uL 07/10/2025 3:36 AM CDT [facility] Blood BLOOD SPECIMEN / Unknown [facility] / Unknown 07/09/2025 12:15 PM CDT 07/09/2025 12:15 PM CDT us Mere Rivera AUDIO/VISUAL MANAGER HEMATOLOGY Final Res ult Performing Organization Address City/[facility]/ZIP Co de Phone Number [facility] [address] [address], [place] [phone] * TSH (07/09/2025 12:15 PM CDT) Pathologist [facility] TSH 3.48 0.40 - 4.50 mIU/L 07/10/2025 5:01 AM CDT [facility] Blood BLOOD SPECIMEN / Unknown [facility] / Unknown 07/09/2025 12:15 PM CDT 07/09/2025 12:15 PM CDT us Mere Rivera AUDIO/VISUAL MANAGER CHEMISTRY Final Res ult Performing Organization Address [facility] de Phone Number [facility] [address] [address], [place] [phone] * (ABNORMAL) HEMOGLOBIN A1C MONITORING (POCT) (07/09/2025 12:15 PM CDT) [facility] POC HEMOGLOBIN A1C 6.0(H) <6.0 % OF TOTAL HGB 07/09/2025 12:32 PM CDT [facility] Comment: Any point of care results exhibiting inconsistency with the patient's clinical status should be repeated using a different testing method. Blood BLOOD SPECIMEN / Unknown [facility] / Unknown 07/09/2025 12:15 PM CDT 07/09/2025 12:15 PM CDT us Mere Rivera AUDIO/VISUAL MANAGER CHEMISTRY Final Res ult Performing Organization Address [facility]/ZIP Co de Phone Number [facility] [address] [address], [place] [phone] [facility] [address] [place] [address], [place] [phone] * (ABNORMAL) COMP METABOLIC PANEL (07/09/2025 12:15 PM CDT) SODIUM 130(L) 135 - 146 mmol/L 07/10/2025 4:05 AM CDT [facility] POTASSIUM 3.7 3.5 - 5.3 mmol/L 07/10/2025 4:05 AM CDT [facility] CHLORIDE 90(L) 98 - 110 mmol/L 07/10/2025 4:05 AM CDT [facility] CARBON DIOXIDE 32 20 - 32 mmol/L 07/10/2025 4:05 AM CDT [facility] GLUCOSE 92 65 - 99 mg/dL 07/10/2025 4:05 AM CDT [facility] Comment: Fasting reference interval CALCIUM 10.2 8.6 - 10.4 mg/dL 07/10/2025 4:05 AM CDT [facility] CREATININE 0.71 0.50 - 1.05 mg/dL 07/10/2025 4:05 AM CDT [facility] BUN/CREATININE RATIO SEE NOTE: 6 - 22 (calc) 07/10/2025 4:05 AM CDT [facility] Comment: Not Reported: BUN and Creatinine are within reference range. EGFR 96 > OR = 60 mL/min/1. 73m2 07/10/2025 4:05 AM CDT [facility] ALBUMIN 4.6 3.6 - 5.1 g/dL 07/10/2025 4:05 AM CDT [facility] PROTEIN, TOTAL 7.0 6.1 - 8.1 g/dL 07/10/2025 4:05 AM CDT [facility] BILIRUBIN, TOTAL 0.5 0.2 - 1.2 mg/dL 07/10/2025 4:05 AM CDT [facility] ALKALINE PHOSPHATASE 91 37 - 153 U/L 07/10/2025 4:05 AM CDT [facility] ALT 14 6 - 29 U/L 07/10/2025 4:05 AM CDT [facility] AST 15 10 - 35 U/L 07/10/2025 4:05 AM CDT [facility] UREA NITROGEN (BUN) 10 7 - 25 mg/dL 07/10/2025 4:05 AM CDT [facility] GLOBULIN 2.4 1.9 - 3.7 g/dL (calc) 07/10/2025 4:05 AM CDT [facility] ALBUMIN/GLOBULI N RATIO 1.9 1.0 - 2.5 (calc) 07/10/2025 4:05 AM CDT [facility] Blood BLOOD SPECIMEN / Unknown [facility] / Unknown 07/09/2025 12:15 PM CDT 07/09/2025 12:15 PM CDT us Mere Rivera AUDIO/VISUAL MANAGER CHEMISTRY Final Res ult [facility] [address] [place] [address], * SCAN-RADIOLOGY REPORT (07/05/2025 12:00 AM CDT) Anatomical Region Laterality Modality Other us Scanner OTHER Final Result * SCAN-CT INTERPRETATION (07/05/2025 12:00 AM CDT) Anatomical Region Laterality Modality Other us Scanner OTHER Final Result * XR LEG LENGTH (06/22/2025 11:03 AM [...] For Patients: As a result of the Century Cures Act, medical imagingexams and procedure reports [...] lt * (ABNORMAL) POCT Urinalysis Dipstick Only [[id number]] (06/08/2025 2:38 PM CDT) SPECIFIC GRAVITY 1.020 1.001 - 1.035 06/08/2025 2:53 PM CDT [facility] PROTEIN 1+(A) NEGATIVE 06/08/2025 2:53 PM CDT [facility] GLUCOSE NEGATIVE NEGATIVE 06/08/2025 2:53 PM CDT [facility] KETONES NEGATIVE NEGATIVE 06/08/2025 2:53 PM CDT [facility] BILIRUBIN NEGATIVE NEGATIVE 06/08/2025 2:53 PM CDT [facility] OCCULT BLOOD 3+(A) NEGATIVE 06/08/2025 2:53 PM CDT [facility] NITRITE NEGATIVE NEGATIVE 06/08/2025 2:53 PM CDT [facility] PH 6.0 5.0 - 8.0 06/08/2025 2:53 PM CDT [facility] LEUKOCYTE ESTERASE 2+(A) NEGATIVE 06/08/2025 2:53 PM CDT [facility] Urine URINE SPECIMEN / Unknown Non-Blood / Unknown 06/08/2025 2:38 PM CDT 06/08/2025 2:38 PM CDT Shruthi Delaney MD URINE Final R esult [employer] [facility] [address] [place] [address], [place] [phone] [facility] [address] [place] [address], [place] [phone] * (ABNORMAL) URINALYSIS MICROSCOPIC [10327.1] - routine (06/08/2025 2:38 PM CDT) RBC 3-5(A) 0-2, None Seen /HPF 06/09/2025 12:14 AM CDT [facility] WBC >100(A) 0-2, 3-5, None Seen /HPF 06/09/2025 12:14 AM CDT [facility] BACTERIA Moderate(A ) None Seen, Rare, Few Bacteria/ HPF 06/09/2025 12:14 AM CDT [facility] EPITHELIAL CELLS Moderate(A ) None Seen, Few Epi/HPF 06/09/2025 12:14 AM CDT [facility] WHITE CELL CLUMPS Present(A) (none) 06/09/2025 12:14 AM CDT [facility] HYALINE CASTS 0-2 0-2, 3-5 /LPF 06/09/2025 12:14 AM CDT [facility] Urine URINE SPECIMEN / Unknown Non-Blood / Unknown 06/08/2025 2:38 PM CDT 06/08/2025 2:38 PM CDT Shruthi Delaney MD URINE Final R esult [facility] [address] [place] [address], * (ABNORMAL) URINE CULTURE [37586.2] (06/08/2025 2:38 PM CDT) CULTURE RESULT(A) 06/11/2025 7:20 AM CDT [facility] CULTURE 10,000-50,000 CFU/mL Proteus mirabilis 06/11/2025 7:20 AM CDT [facility] CULTURE <10,000 CFU/mL Multiple organisms probable contaminants 06/11/2025 7:20 AM CDT [facility] Urine URINE SPECIMEN / Unknown Non-Blood / Unknown 06/08/2025 2:38 PM CDT 06/08/2025 2:38 PM CDT Narrative Organism Antibiotic Method Susceptibility Proteus mirabilis TRIMETHOPRIM/SULF <=/: S Proteus mirabilis AMPICILLIN <=2: S Proteus [...] MEROPENEM <=0.25: S Proteus mirabilis NITROFURANTOIN R Shruthi Delaney MD MICROBIOLOGY Final R esult [facility] [address] [place] [address], [place] * SDNA-FIT EXTERNAL (COLOGUARD) [[id number]] (10/08/2024 9:04 AM MAIL SORTING SUPERVISOR) NONINV COLON CA DNA+OCC BLD SCRN STL-IMP Negative Negative 10/15/2024 8:13 AM MAIL SORTING SUPERVISOR [facility] (CLIA #:[id number]) Comment: NEGATIVE TEST RESULT. A negative Cologuard [...] Slater et al, N Engl J Med 2014;370(14):6853-9238) The normal value (reference range) for this assay is negative. COLOGUARD RE-SCREENING RECOMMENDATION: Periodic colorectal cancer screening is an important part of preventive healthcare for asymptomatic individuals at average risk for colorectal cancer. Following a negative Cologuard result, the [place] [employer] and U.S. Multi-Society Task Force screening guidelines recommend a Cologuard re-screening interval of 3 years. References: [place] [employer] Guideline for Colorectal Cancer Screening: https://www.cancer.org/cancer/tnbhk-bxiqwk-xbgftm/qzqygvylz-uapqsnsya-sydzgnw/ac s-rec ommendations.html.; [place] SIDHU, Dinesh VILLEDA, [place] uCrrieK, Colorectal Cancer Screening: Recommendations for Physicians and Patients from the U.S. Multi-Society Task Force on Colorectal Cancer Screening , Am J Gastroenterology 2017; 112:5833-7478. TEST DESCRIPTION: Composite algorithmic analysis of stool [...] Slater et al, N Engl J Med 2014;370(14):9063-3644.) Cologuard may produce a false negative or false positive result (no colorectal cancer or precancerous polyp present at colonoscopy follow up). A negative Cologuard test result does not guarantee the absence of CRC or advanced adenoma (pre-cancer). The current Cologuard screening interval is every 3 years. ([place] [employer] and U.S. Multi-Society Task Force). Cologuard performance data in a 10,000 patient pivotal study using colonoscopy as the reference method can be accessed at the following location: www.wesync.tv.[employer]/results. Additional description of the Cologuard test process, warnings and precautions can be found at www.Addictiverd.com. Stool specimen (specimen) (Rectum) 10/08/2024 9:04 AM MAIL SORTING SUPERVISOR 10/13/2024 7:34 AM MAIL SORTING SUPERVISOR us Mere Rivera AUDIO/VISUAL MANAGER URINE Final Res ult [facility] (CLIA #:[id number]) [place] [address], [place] [phone] * LIPID PANEL W REFLEX MEASURED LDL (02/07/2024 3:29 PM CDT) CHOLESTEROL,TOTAL 147 100 - 199 mg/dL 02/07/2024 10:37 PM CDT [facility] Comment: Cholesterol, Total Reference Ranges Desirable <200 mg/dL Borderline 200-239 mg/dL High >=240 mg/dL TRIGLYCERIDES 148 <150 mg/dL 02/07/2024 10:37 PM CDT [facility] HDL CHOLESTEROL 41 >40 mg/dL 10:37 PM CDT [facility] NON-HDL CHOLESTEROL 106 <145 mg/dl 02/07/2024 10:37 PM CDT [facility] CHOL/HDL RATIO 3.59 <4.50 02/07/2024 10:37 PM CDT [facility] LDL CHOLESTEROL 76 <=130 mg/dL 02/07/2024 10:37 PM CDT [facility] VLDL CHOLESTEROL 30 <=30 mg/dL 02/07/2024 10:37 PM CDT [facility] PROVIDER ORDERED STATUS RANDOM 02/07/2024 10:37 PM CDT [facility] Blood BLOOD SPECIMEN / Unknown Venipuncture / Unknown 02/07/2024 3:29 PM CDT 02/07/2024 3:29 PM CDT us Mere Rivera AUDIO/VISUAL MANAGER CHEMISTRY Final Res ult [facility] [address] [place] [address], * XR MAMMO BILAT SCREENING (11/23/2019 10:15 AM MAIL SORTING SUPERVISOR) Anatomical Region Laterality Modality BREASTS, Breast Left, Breast Right Bilateral Mammography Impressions 11/24/2019 4:16 PM MAIL SORTING SUPERVISOR There is no radiographic evidence for malignancy. Recommend annual mammograms. A lay language report of this examination will be provided to the patient. MAMMOGRAM ASSESSMENT: ACR 1 Negative Narrative 11/24/2019 4:16 PM MAIL SORTING SUPERVISOR XR MAMMO BILAT SCREENING [[id number]] CLINICAL HISTORY: This is an asymptomatic 59 [...] Bro DO MAMMO Final Resul t * RECORDS MANAGEMENT ANALYST THIN PREP PAP SCREEN IMAGED (11/16/2019 11:10 AM MAIL SORTING SUPERVISOR) Case Report Gynecologic Cytology Report Case: [id number] Authorizing Provider: Jocelyn Bro DO Collected: 11/16/2019 1110 Ordering Location: [facility] Received: 11/16/2019 1126 Clinic First Screen: Casi Wu Specimen: RECORDS MANAGEMENT ANALYST Thin[employer] Vial Screening, Cervical 11/26/2019 1:35 PM MAIL SORTING SUPERVISOR [employer] ENTRAL LABORATORY INTERPRETATION/ RESULT NEGATIVE FOR INTRAEPITHELIAL LESION OR MALIGNANCY (NIL) (none) 11/26/2019 1:35 PM MAIL SORTING SUPERVISOR [employer] ENTRAL LABORATORY at 1334 MAIL SORTING SUPERVISOR SPECIMEN ADEQUACY Satisfactory for evaluation Endocervical component present 11/26/2019 1:35 PM MAIL SORTING SUPERVISOR [employer] [facility] HPV REQUEST HPV and PAP 11/26/2019 1:35 PM MAIL SORTING SUPERVISOR [employer] [facility] Date of LMP NA 11/26/2019 1:35 PM MAIL SORTING SUPERVISOR [employer] [facility] Last Pap Date 12/05/15 11/26/2019 1:35 PM MAIL SORTING SUPERVISOR [employer] [facility] Last Pap Result NIL 0 1:35 PM MAIL SORTING SUPERVISOR [employer] [facility] Abnormal Pap or [place] Bx in last 5 years No 11/26/2019 1:35 PM MAIL SORTING SUPERVISOR [facility] Menstrual Status Ablation 11/26/2019 1:35 PM MAIL SORTING SUPERVISOR [facility] [place] Bx Done Today No 11/26/2019 1:35 PM MAIL SORTING SUPERVISOR [facility] Additional Information None given 11/26/2019 1:35 PM MAIL SORTING SUPERVISOR [facility] Comment: Cytology is screened at [facility] - [address], [place] [address] and [facility] - [address] [place] [address], [place] [address] [address] [facility] - [address] [place] [address] Interpreted at [facility] - [address], [place] [address] Automated Review Successful 11/26/2019 1:35 PM MAIL SORTING SUPERVISOR [facility] Comment:Specimen processed s uccessfully by automated clipper automatic device, Th[employer] Imaging System, [employer] ANCILLARY TESTING RECORDS MANAGEMENT ANALYST HPV Ordered, Please see separate report 11/26/2019 1:35 PM [facility] Note The pap test is a screening technique, not a diagnostic procedure. It is used primarily to screen for squamous cancers and precursor lesions. Published studies have shown that it is subject to both false negative and false positive results. The pap test should not be used as the sole means to diagnose or exclude pre-malignant and malignant lesions. 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 [place] [address], [place] * ANTI HCV (02/18/2006 11:13 AM CDT) ANTI HCV Non-reactiv e [facility] Blood specimen (specimen) BLOOD SPECIMEN / Unknown 02/18/2006 11:13 AM CDT 02/18/2006 11:12 AM CDT Narrative [facility] - 02/20/2006 9:23 AM CDT Testing Performed By [place], [place] us Livier Umana MD SEND OUTS Final Result [facility] [address] [place] [address] from Last 3 Months or Most Recently Relevant to Health Maintenance Insurance [facility] [address] [place] [address] Advance Directives * Full Code (Latest Code Status on File) Date Activated Date Inactivated Comments 03/31/2013 11:49 AM 03/31/2013 5:20 PM * Full Code Date Activated Date Inactivated Comments 03/20/2013 7:36 AM 03/20/2013 8:49 PM Care Teams Senior Net Web Developer Relationship Specialty [place] [id number] [place] [address] PCP - General Nurse Practitioner 09/07/20 Walter Rowe MD [address] [facility] [address] [place] [address] Urology Surgery - Urology 02/16/14
--- NOTE | 2025-09-03 15:06 | XR_ITS ---
Patient: ZARA FRANCIS Facility:?[facility] RIS Patient ID:?[id number] Site Patient ID:?[id number]. Site :?[id number] Study:?XRay-Chest 2V-09/03/2025 3:21:17 PM Ordering Physician:Tom Mei Final Report: INDICATION: Productive cough. COMPARISON: CT chest 07/05/2025. TECHNIQUE: X-ray chest 2 views PA and lateral. FINDINGS: Lungs: There is a hazy opacity within the right middle lobe. The lungs are hyperinflated, and there are emphysematous changes with an upper lobe predominance. There is redemonstration of an area of spiculation at the right lung apex, which is better evaluated on the recently performed prior CT scan of the chest. Otherwise, there are mildly increased interstitial markings bilaterally. This is nonspecific but may be inflammatory in etiology. There is no pneumothorax or contusion significant pleural effusion. Heart/mediastinum: The heart size and mediastinal contours are normal. There are calcifications of the thoracic aorta. Osseous structures: There are degenerative changes within the spine. IMPRESSION: 1. Hazy opacity in the right middle lobe may reflect atelectasis or pneumonia. No lobar airspace consolidation. 2. Hyperinflated lungs with areas of emphysema. Area of spiculation in the right lung apex, which is better evaluated on the prior CT. Dictated by Tashi Lindsey MD @ 09/03/2025 3:30:31 PM (Electronic Signature)
--- NOTE | 2025-09-03 15:07 | ED.SOB ---
HPI - SOB/Dyspnea General Chief Complaint: Shortness of Breath/Dyspnea Stated Complaint: Pneumonia Time Seen by Provider: 09/03/25 14:46 History of Present Illness HPI Narrative: This 64-year-old female has a history of smoking and comes in reporting productive cough and shortness of breath. She was evaluated a couple months ago told that she had COPD. She is using albuterol inhaler and states that it does not seem to help her anymore. She is not taking any kind of preventative medicine for her breathing. She reports a productive cough. She arrives here with normal vital signs. She has not had any fevers. Related Data Home Medications ?Medication ?Instructions ?Recorded ?Confirmed albuterol 90 mcg/actuation aerosol 2 spray inhalation PRN 04/18/22 04/18/22 inhaler aspirin 81 mg tablet,delayed 81 mg PO DAILY 04/18/22 07/05/25 release citalopram 40 mg tablet 40 mg PO DAILY 04/18/22 07/05/25 gabapentin 300 mg capsule 300 mg PO QDAY 04/18/22 07/05/25 ipratropium 0.5 mg-albuterol 3 mg 3 ml inhalation Q6-8H PRN 04/18/22 07/05/25 (2.5 mg base)/3 mL nebulization soln levothyroxine 112 mcg tablet 112 mcg PO DAILY 04/18/22 07/05/25 metformin 500 mg tablet 500 mg PO QDAY 04/18/22 07/05/25 montelukast 5 mg chewable tablet 10 mg PO QDAY 04/18/22 04/18/22 omeprazole 40 mg capsule,delayed 40 mg PO QDAY 04/18/22 07/05/25 release pravastatin 40 mg tablet 40 mg PO .Bedtime 04/18/22 07/05/25 pregabalin 150 mg capsule 150 mg PO TID 04/18/22 07/05/25 tizanidine 4 mg capsule 4 mg PO BID PRN 04/18/22 07/05/25 fenofibrate nanocrystallized 145 145 mg PO DAILY 07/05/25 07/05/25 mg tablet Previous Rx's ?Medication ?Instructions ?Recorded clindamycin HCl 150 mg capsule 450 mg (3 x 150 mg) PO TID 10 days 07/12/24 #90 caps ipratropium 0.5 mg-albuterol 3 mg 3 ml inhalation QID PRN #90 mL 07/05/25 (2.5 mg base)/3 mL nebulization soln nebulizer and compressor #1 ea 07/05/25 azithromycin 250 mg tablet 250 mg PO DAILY #6 tabs 09/03/25 (Zithromax Z-Marlon) fluticasone 100 mcg-salmeterol 50 1 inh inhalation BID #60 ea 09/03/25 mcg/dose blistr powdr for inhalation (Advair Diskus) methylprednisolone 4 mg tablets in See Rx Instructions PO .COMPLEX 09/03/25 a dose pack (Medrol (Marlon)) #21 ea Allergies Allergy/AdvReac Type Severity Reaction Status Date / Time Cephalosporins Allergy Mild Verified 07/05/25 16:45 Quinolones Allergy Mild Verified 07/05/25 16:45 sulfamethoxazole Allergy Mild Verified 07/05/25 16:45 trimethoprim Allergy Mild Verified 07/05/25 16:45 Clavulanate Allergy Mild Uncoded 07/12/24 16:10 Sulfa drugs Allergy Mild Uncoded 07/12/24 16:10 Review of Systems Status of ROS: Reports: 10 or more systems reviewed and unremarkable except as noted in History and below Narrative: Constitutional: No fevers, no weight gain or loss. Eyes: No discharge. No vision changes. HENT: No congestion, no sore throat, no ear pain. Cardiovascular: No chest pain, no palpitations. Respiratory: Productive Cough and shortness of breath. Gastrointestinal: No abdominal pain, no vomiting, no diarrhea. Genitourinary: No dysuria, no hematuria. Musculoskeletal: Normal range of motion. Skin: No rashes, no pruritis. Neurological: No dizziness, weakness, sensory change, speech change. Endo/Heme/Allergies: No bruising or bleeding. No polydipsia. Pysch: no suicidality, no anxiety, no insomnia. All other systems reviewed and are negative. [facility] Social History Smoking Status: Current every day smoker What tobacco products do you use: cigarettes Smoking packs per day: 0.5 Smoking cigarettes per day: 10.0 How often do you have a drink containing alcohol: never AUDIT-C Alcohol total score: 0 Non-prescribed substance use: denies use service: No Exam Narrative: Exam Narrative: Constitutional: Well-developed, well-nourished, no acute distress. HEENT: Normocephalic, atraumatic. Neck: Normal range of motion. Nontender. Supple. Heart: Regular. No murmurs. Normal rate. Intact distal pulses. Lungs: Clear to auscultation. No chest discomfort. No wheezes, rhonchi, or rales. Abdomen: Normal bowel sounds. Nontender. No rebound tenderness. Genitalia: Deferred. Back: No midline tenderness. Normal range of motion. Extremities: Normal range of motion. No injury. Skin: Intact. No rash. Warm. No erythema or pallor. Neurologic: No altered sensation. No weakness. Alert and oriented. Psychiatric: No suicidality. No anxiety or depression. No insomnia. Nursing notes and vitals signs are reviewed. Const: Vital Signs, click to edit/add: Vital Signs - 24 hr 09/03/25 14:48 Temperature 97.6 F Pulse Rate [Pulse Oximeter] 73 Respiratory Rate 20 Blood Pressure [Ri t Upper Arm] 155/81 H Pulse Oximetry 96 Oxygen Delivery Me thod Room Air Course Vital Signs Vital signs: Initial Vital Signs Temperature 97.6 F 09/03/25 14:48 Temperature Source Temporal Artery Scan 09/03/25 14:48 Pulse Rate 73 09/03/25 14:48 Respiratory Rate 20 09/03/25 14:48 Blood Pressure 155/81 H 09/03/25 14:48 Blood Pressure Mean 105 09/03/25 14:48 Blood Pressure Position Sitting 09/03/25 14:48 Pulse Oximetry 96 09/03/25 14:48 Oxygen Delivery Method Room Air 09/03/25 14:48 Vital Signs Temperature 97.6 F 09/03/25 14:48 Pulse Rate 73 09/03/25 14:48 Respiratory Rate 20 09/03/25 14:48 Blood Pressure 155/81 H 09/03/25 14:48 Pulse Oximetry 96 09/03/25 14:48 Oxygen Delivery Method Room Air 09/03/25 14:48 Temperature 97.6 F 09/03/25 14:48 Pulse Rate 73 09/03/25 14:48 Respiratory Rate 20 09/03/25 14:48 Blood Pressure 155/81 H 09/03/25 14:48 Pulse Oximetry 96 09/03/25 14:48 Oxygen Delivery Method Room Air 09/03/25 14:48 Medications Administered Medications: Discontinued Medications Generic Name Dose Route Start Last Admin Trade Name Ayana PRN Reason Stop Dose Admin Dexamethasone 10 mg 09/03/25 15:06 09/03/25 15:29 Dexamethasone 10 Mg/Ml Inj PO 09/03/25 15:07 10 mg ONCE ONE Administration MDM - SOB/Dyspnea MDM Narrative Medical decision making narrative: This patient comes in reporting worsening shortness of breath and cough. She has a long-term smoker and states that she has cut back but is not completely quit. She arrives here with sufficient oximetry. I did obtain a checks x-ray and by my review does not show any sign of pneumonia or mass. The the patient did receive an oral dose of dexamethasone. She is not using accessory muscles for breathing. She is using albuterol frequently without much relief. I did prescribed Advair and a Medrol Dosepak. With her smoking history she is at some risk for lower respiratory infection even though there was no sign of pneumonia on my review of her chest x-ray. I did provide also a prescription for a Z-Marlon. I encouraged her to discontinue smoking and advised her to follow-up with her primary physician as there are some medicines that can help in this regard. Discharge Plan Discharge Clinical Impression: COPD (chronic obstructive pulmonary disease), Acute lower respiratory infection Patient Disposition: Home, Self-Care Condition: Stable Additional Instructions: Smoking cessation is encouraged. Take medications as prescribed. Follow-up with primary physician for ongoing resources to assist with smoking cessation. Return if symptoms worsen. Prescriptions: New azithromycin [Zithromax Z-Marlon] 250 mg tablet 250 mg PO DAILY Qty: 6 0RF methylprednisolone [Medrol (Marlon)] 4 mg tablets,dose pack See Rx Instructions .ROUTE .COMPLEX Qty: 21 0RF Rx Instructions: orally per package directions fluticasone propion-salmeterol [Advair Diskus] 100-50 mcg/dose blister with device 1 inh inhalation BID Qty: 60 2RF No Action pregabalin 150 mg capsule 150 mg PO TID levothyroxine 112 mcg tablet 112 mcg PO DAILY albuterol 90 mcg/actuation aerosol 2 spray inhalation PRN pravastatin 40 mg tablet 40 mg PO .Bedtime aspirin 81 mg tablet,delayed release (DR/EC) 81 mg PO DAILY citalopram 40 mg tablet 40 mg PO DAILY tizanidine 4 mg capsule 4 mg PO BID PRN montelukast 5 mg tablet,chewable 10 mg PO QDAY ipratropium-albuterol 0.5 mg-3 mg(2.5 mg base)/3 mL solution for nebulization 3 ml inhalation Q6-8H PRN omeprazole 40 mg capsule,delayed release(DR/EC) 40 mg PO QDAY metformin 500 mg tablet 500 mg PO QDAY gabapentin 300 mg capsule 300 mg PO QDAY fenofibrate nanocrystallized 145 mg tablet 145 mg PO DAILY ipratropium-albuterol 0.5 mg-3 mg(2.5 mg base)/3 mL solution for nebulization 3 ml inhalation QID PRNQty: 90 0RF (DME) nebulizer and compressor Device See Rx Instructions .Route Qty: 1 0RF Rx Instructions: As directed clindamycin HCl 150 mg capsule 450 mg PO TID 10 Days Qty: 90 0RF Follow Up/Referrals: Mere Rivera, DALIA, GEODETIC TECHNICIAN [Primary Care Provider, Family Practice] Stand Alone Forms: MyHealth Info Instructions
== END 2025-09-03 17:12 | disposition home or self-care (01) ==
PROVIDERS: Emergency Provider Emergency Medicine Emergency Medical Services; PCP Nurse Practitioner Family
DX: J22 Unspecified acute lower respiratory infection (principal); J44.0 Chronic obstructive pulmonary disease with (acute) lower respiratory infection; F17.210 Nicotine dependence, cigarettes, uncomplicated
CPT/HCPCS: 71046; 99283; 99284; J1100